=== PATIENT | female | born 1935 | race Caucasian/White ===

== ENCOUNTER 2020-12-20 14:04 | Inpatient (IN) | payer MEDICARE ==
[~2020-12-20 14:04] MED LIST: Iopamidol 370 76% 100 ML VIAL ONE; Iopamidol 370 76% 50 ML VIAL FS ONE
[2020-12-20 14:33] LABS: #Monocytes 1.6 thou/uL (0.11-0.59); #Neutrophils 14.7 thou/uL (1.40-6.50); %Basophils 0.1 % (0.0-1.0); %Eosinophils 0.2 % (0.0-10.0); %Lymphocytes 5.7 % (21.0-51.0); %Monocytes 9.1 % (0.0-10.0); Hemoglobin 15.8 g/dL (12.0-16.0); Mean Corpuscular HGB CONC 32.4 g/dL (32.0-36.0); Mean Corpuscular Hemoglobin 27.8 pg (27.0-31.0); Mean Corpuscular Volume 85.8 fL (78.0-98.0); Mean Platelet Volume 7.8 fL (7.4-10.4); Platelet Count 363 thou/uL (130-400); RBC Distribution Width 13.1 % (11.5-14.5); Red Blood Cell (RBC) Count 5.68 mill/uL (4.20-5.40); White Blood Cell (WBC) Count 17.3 thou/uL (4.8-10.8)
[2020-12-20] MEDS ORDERED: Fentanyl 100 MCG/2 ML VIAL ONE (14:43)
[2020-12-20 14:44] LABS: INR-International Normal Ratio 1.1; Prothrombin Time 13.8 sec (12.0-14.7)
[2020-12-20 14:46] LABS: PTT 92.2 sec (22.9-36.1)
[2020-12-20 14:55] LABS: ALT (SGPT) 37 U/L (8-55); AST (SGOT) 177 U/L (5-34); Albumin 3.3 g/dL (3.4-4.8); Alkaline Phosphatase 118 U/L (40-110); Anion Gap 18 mmol/L (10-20); BUN (Urea Nitrogen) 9 mg/dL (9.8-20.1); Bilirubin, Total 0.4 mg/dL (0.2-1.2); Calc. Creatinine Clearance 0 mL/min (70-130); Calcium 9.1 mg/dL (7.8-10.44); Carbon Dioxide 21 mmol/L (23-31); Chloride 105 mmol/L (98-107); Globulin 2.3 g/dL (2.4-3.5); Glucose 120 mg/dL (83-110); Protein, Total 5.6 g/dL (5.8-8.1); Sodium 140 mmol/L (136-145)
[2020-12-20] MEDS ORDERED: Clopidogrel Bisulfate 300 MG TAB ONE (15:04)
[2020-12-20] MEDS ORDERED: Adenosine 6 MG/2 ML VIAL ONE (15:04)
[2020-12-20] MEDS ORDERED: Heparin 10,000 UNITS/ 10 ML VIAL ONE (15:14)
[2020-12-20] MEDS ORDERED: Mag-Al 1200 mg/1200 mg/30 ML UDCUP PO PRN (15:17)
[2020-12-20] MEDS ORDERED: Ondansetron PF 4 MG/2 ML Vial ONE (15:19)
[2020-12-20] MEDS ORDERED: Sodium Chloride 0.9% 1,000 ML IV SCH (15:30)
[2020-12-20] MEDS ORDERED: Morphine 4 MG/ML VIAL ONE (15:47)
[2020-12-20 16:08] LABS: CKMB 154.9 ng/mL (0-6.6)
[2020-12-20 16:29] LABS: Cardiac Risk 3.7 (Less than 4.5)
[2020-12-20] MEDS ORDERED: Zolpidem Tartrate 5 MG TAB PO PRN (17:40)
[2020-12-20] MEDS ORDERED: Ondansetron PF 4 MG/2 ML Vial IVP PRN (17:40)
[2020-12-20] MEDS ORDERED: Acetaminophen 650 MG Suppository PR PRN (17:40)
[2020-12-20] MEDS ORDERED: Atropine Sulfate 1 mg/10 ml Syringe ONE (20:42)
[2020-12-20] MEDS ORDERED: Famotidine 20 MG TAB PO SCH (21:00)
[2020-12-20] MEDS ORDERED: Atorvastatin Calcium 40 MG TAB PO SCH (21:00)
[2020-12-20] MEDS: Morphine 4 MG/ML VIAL SLOW IVP PRN (21:05)
[2020-12-20] MEDS: Atorvastatin Calcium 40 MG TAB PO SCH (21:06)
[2020-12-20 22:50] LABS: Troponin I 136.357 ng/mL (< 0.028)
[2020-12-21] MEDS ORDERED: DOPamine 400 MG/D5W 250 ML 250 ML IVPB SCH (00:15)
[2020-12-21] MEDS: Ondansetron PF 4 MG/2 ML Vial IVP PRN ×3 (01:35→12:48)
[2020-12-21] MEDS: Morphine 4 MG/ML VIAL SLOW IVP PRN ×3 (01:37→13:40)
[2020-12-21] MEDS ORDERED: Norepinephrine 8 MG/0.9% NS 250 ML ONE (01:59)
[2020-12-21] MEDS: Norepinephrine 8 MG/0.9% NS 250 ML IVPB SCH ×2 (02:20→17:19)
[2020-12-21 02:39] LABS: Hemoglobin A1c 5.5 % (4.0-6.0)
[2020-12-21 02:49] LABS: Band 11 % (5-11); Eosinophils 1 % (0-10); Hemoglobin 13.7 g/dL (12.0-16.0); Lymphocytes 2 % (21-51); MDiff Complete? YES; Mean Corpuscular HGB CONC 33.5 g/dL (32.0-36.0); Mean Corpuscular Hemoglobin 29.4 pg (27.0-31.0); Mean Corpuscular Volume 87.9 fL (78.0-98.0); Mean Platelet Volume 7.9 fL (7.4-10.4); Monocytes 10 % (0-10); Neutrophil 75 % (42-75); Platelet Count 367 thou/uL (130-400); Platelet Morphology Comment Appears Adequate; RBC Distribution Width 13.2 % (11.5-14.5); RBC Morphology Normal; Reactive Lymphocytes 1 % (0-10); Red Blood Cell (RBC) Count 4.67 mill/uL (4.20-5.40)
[2020-12-21 03:07] LABS: Critical Call Chem Troponin I RESULT DECREASING; Troponin I 123.561 ng/mL (< 0.028)
[2020-12-21] MEDS: Sodium Chloride 0.9% 1,000 ML IV SCH ×2 (03:47→17:21)
[2020-12-21 04:33] LABS: ALT (SGPT) 33 U/L (8-55); AST (SGOT) 160 U/L (5-34); Alkaline Phosphatase 104 U/L (40-110); Anion Gap 18 mmol/L (10-20); BUN (Urea Nitrogen) 16 mg/dL (9.8-20.1); Bilirubin, Total 0.5 mg/dL (0.2-1.2); Calc. Creatinine Clearance 37 mL/min (70-130); Calcium 8.8 mg/dL (7.8-10.44); Carbon Dioxide 18 mmol/L (23-31); Cardiac Risk 3.2 (Less than 4.5); Chloride 107 mmol/L (98-107); Cholesterol 138 mg/dl (< 200 Desired); Globulin 2.7 g/dL (2.4-3.5); Glucose 156 mg/dL (83-110); HDL Cholesterol 43 mg/dL (>60 Neg Risk); LDL Cholesterol, Calculated 74 mg/dL; Potassium 5.1 mmol/L (3.5-5.1); Protein, Total 5.7 g/dL (5.8-8.1); Sodium 138 mmol/L (136-145); Triglycerides 105 mg/dL (Less than 150)
[2020-12-21 08:04] LABS: SARS-CoV-2 NAA Rapid Test Not Detected (NotDetected)
[2020-12-21] MEDS: Aspirin Chewable 81 MG TAB PO SCH (08:55)
[2020-12-21] MEDS: Famotidine 20 MG TAB PO SCH (08:55)
[2020-12-21] MEDS: Enoxaparin Sodium 40 MG/0.4 ML SYRINGE SC SCH (08:55)
[2020-12-21] MEDS: Clopidogrel Bisulfate 75 MG TAB PO SCH (08:55)
[2020-12-21] MEDS: HYDROcodone/Acetaminophen 5/325 mg Tablet PO PRN ×2 (09:04→17:10)
[2020-12-21] MEDS: cefTRIAXone\\ROCEPHIN 1 GM in Sodium Chloride 0.9% 100 ML IVPB SCH (10:21)
[2020-12-21 10:57] LABS: Bacteria/HPF None Seen HPF (None Seen); Bilirubin Negative (Negative); Blood, Urine Negative (Negative); Clarity Clear (Clear); Glucose, Urine (Dipstick) Normal (Negative); Ketone, Urine Negative (Negative); Leukocyte Negative Leu/uL (Negative); Nitrite Negative (Negative); Protein, Urine (Dipstick) 30 mg/dL (Neg-Trace); RBC/HPF 0-3 HPF (0-3); Specific Gravity, Urine 1.049 (1.002-1.036); Squamous Epithelial None Seen HPF (0-3); Urobilinogen Normal mg/dL (Less than 2)
[2020-12-21 11:29] LABS: Critical Call Chem Troponin I RESULT DECREASING; Troponin I 70.533 ng/mL (< 0.028)
[2020-12-21] MEDS: Senokot S 8.6-50 MG TAB PO PRN (13:45)
[2020-12-21] MEDS ORDERED: FLU VACC QS2021-22(65YR UP)/PF 240 MCG/0.7 ML SYRINGE IM ONE (17:00)
[2020-12-21] MEDS: Atorvastatin Calcium 40 MG TAB PO SCH (20:00)
[2020-12-22] MEDS ORDERED: Norepinephrine 8 MG in Dextrose 5% in Water 242 ML IVPB PRN (02:00)
[2020-12-22] MEDS: Norepinephrine 8 MG in Dextrose 5% in Water 242 ML IVPB SCH ×2 (03:02→13:16)
[2020-12-22] MEDS: Sodium Chloride 0.9% 1,000 ML IV SCH ×2 (05:21→18:10)
[2020-12-22 08:20] LABS: #Lymphocytes 1.2 thou/uL (1.20-3.40); #Monocytes 1.6 thou/uL (0.11-0.59); #Neutrophils 12.6 thou/uL (1.40-6.50); %Basophils 0.2 % (0.0-1.0); %Eosinophils 0.3 % (0.0-10.0); %Lymphocytes 7.9 % (21.0-51.0); %Monocytes 10.2 % (0.0-10.0); %Neutrophils 81.4 % (42.0-75.0); Hemoglobin 10.8 g/dL (12.0-16.0); Mean Corpuscular HGB CONC 32.2 g/dL (32.0-36.0); Mean Corpuscular Hemoglobin 28.1 pg (27.0-31.0); Mean Corpuscular Volume 87.3 fL (78.0-98.0); Mean Platelet Volume 7.7 fL (7.4-10.4); Platelet Count 345 thou/uL (130-400); RBC Distribution Width 13.4 % (11.5-14.5); Red Blood Cell (RBC) Count 3.84 mill/uL (4.20-5.40); White Blood Cell (WBC) Count 15.4 thou/uL (4.8-10.8)
[2020-12-22 08:41] LABS: Anion Gap 13 mmol/L (10-20); BUN (Urea Nitrogen) 15 mg/dL (9.8-20.1); Calc. Creatinine Clearance 58 mL/min (70-130); Calcium 8.3 mg/dL (7.8-10.44); Carbon Dioxide 21 mmol/L (23-31); Chloride 107 mmol/L (98-107); Glucose 124 mg/dL (83-110); Potassium 4.2 mmol/L (3.5-5.1); Sodium 137 mmol/L (136-145)
[2020-12-22] MEDS: cefTRIAXone\\ROCEPHIN 1 GM in Sodium Chloride 0.9% 100 ML IVPB SCH (09:03)
[2020-12-22] MEDS: ALPRAZolam 0.5 MG TAB PO PRN ×2 (09:04→21:05)
[2020-12-22] MEDS: Enoxaparin Sodium 40 MG/0.4 ML SYRINGE SC SCH (09:04)
[2020-12-22] MEDS: Clopidogrel Bisulfate 75 MG TAB PO SCH (09:04)
[2020-12-22] MEDS: Famotidine 20 MG TAB PO SCH (09:04)
[2020-12-22] MEDS: Aspirin Chewable 81 MG TAB PO SCH (09:04)
[2020-12-22] MEDS: Atorvastatin Calcium 40 MG TAB PO SCH (20:14)
[2020-12-22] MEDS: Morphine 4 MG/ML VIAL SLOW IVP PRN (20:14)
[2020-12-22] MEDS: Ondansetron PF 4 MG/2 ML Vial IVP PRN ×2 (20:16)
[2020-12-23] MEDS: Senokot S 8.6-50 MG TAB PO PRN (04:40)
[2020-12-23] MEDS: ALPRAZolam 0.5 MG TAB PO PRN (04:41)
[2020-12-23 08:30] LABS: Chloride 109 mmol/L (98-107); Potassium 4.1 mmol/L (3.5-5.1); Sodium 139 mmol/L (136-145)
[2020-12-23] MEDS: Enoxaparin Sodium 40 MG/0.4 ML SYRINGE SC SCH (08:30)
[2020-12-23] MEDS: Aspirin Chewable 81 MG TAB PO SCH (08:30)
[2020-12-23 08:31] LABS: Glucose 87 mg/dL (83-110)
[2020-12-23 08:33] LABS: Carbon Dioxide 22 mmol/L (23-31)
[2020-12-23 08:34] LABS: Calc. Creatinine Clearance 63 mL/min (70-130)
[2020-12-23 08:35] LABS: BUN (Urea Nitrogen) 10 mg/dL (9.8-20.1)
[2020-12-23 08:37] LABS: Anion Gap 12 mmol/L (10-20)
[2020-12-23 08:40] LABS: #Eosinphils 0.1 thou/uL (0.0-0.7); #Lymphocytes 0.9 thou/uL (1.20-3.40); #Monocytes 0.8 thou/uL (0.11-0.59); #Neutrophils 4.4 thou/uL (1.40-6.50); %Basophils 0.4 % (0.0-1.0); %Eosinophils 2.1 % (0.0-10.0); %Lymphocytes 14.2 % (21.0-51.0); %Monocytes 12.9 % (0.0-10.0); %Neutrophils 70.4 % (42.0-75.0); Hemoglobin 9.2 g/dL (12.0-16.0); Mean Corpuscular Hemoglobin 28.9 pg (27.0-31.0); Mean Corpuscular Volume 87.7 fL (78.0-98.0); Mean Platelet Volume 7.9 fL (7.4-10.4); Platelet Count 204 thou/uL (130-400); RBC Distribution Width 13.1 % (11.5-14.5); Red Blood Cell (RBC) Count 3.17 mill/uL (4.20-5.40); White Blood Cell (WBC) Count 6.2 thou/uL (4.8-10.8)
[2020-12-23] MEDS: Sodium Chloride 0.9% 1,000 ML IV SCH ×2 (08:52→17:43)
[2020-12-23] MEDS: Ondansetron PF 4 MG/2 ML Vial IVP PRN ×2 (09:35→17:43)
[2020-12-23] MEDS: Clopidogrel Bisulfate 75 MG TAB PO SCH (09:54)
[2020-12-23] MEDS: Famotidine 20 MG TAB PO SCH (09:55)
[2020-12-23] MEDS ORDERED: Guaifenesin DM 100-10/5 ML UDCUP PO PRN (10:14)
[2020-12-23] MEDS ORDERED: Loratadine 10 MG TAB PO PRN (10:15)
[2020-12-23] MEDS ORDERED: Milk Of Magnesia 30 ML UDCUP PO PRN (10:16)
[2020-12-23] MEDS: cefTRIAXone\\ROCEPHIN 1 GM in Sodium Chloride 0.9% 100 ML IVPB SCH (10:51)
[2020-12-23] MEDS: Morphine 4 MG/ML VIAL SLOW IVP PRN ×2 (11:03→20:30)
[2020-12-23] MEDS: Azithromycin 500 MG in Sodium Chloride 0.9% 250 ML 250 ML IVPB SCH (11:56)
[2020-12-23] MEDS: Atorvastatin Calcium 40 MG TAB PO SCH (20:39)
[2020-12-24] MEDS: Morphine 4 MG/ML VIAL SLOW IVP PRN ×4 (00:21→18:22)
[2020-12-24 04:09] LABS: #Eosinphils 0.2 thou/uL (0.0-0.7); #Lymphocytes 0.7 thou/uL (1.20-3.40); #Monocytes 0.6 thou/uL (0.11-0.59); #Neutrophils 3.6 thou/uL (1.40-6.50); %Eosinophils 4.2 % (0.0-10.0); %Lymphocytes 12.9 % (21.0-51.0); %Monocytes 11.1 % (0.0-10.0); %Neutrophils 71.8 % (42.0-75.0); Hemoglobin 8.1 g/dL (12.0-16.0); Mean Corpuscular HGB CONC 33.7 g/dL (32.0-36.0); Mean Corpuscular Hemoglobin 29.8 pg (27.0-31.0); Mean Corpuscular Volume 88.4 fL (78.0-98.0); Mean Platelet Volume 7.9 fL (7.4-10.4); Platelet Count 207 thou/uL (130-400); RBC Distribution Width 13.1 % (11.5-14.5); Red Blood Cell (RBC) Count 2.73 mill/uL (4.20-5.40); White Blood Cell (WBC) Count 5.1 thou/uL (4.8-10.8)
[2020-12-24 04:12] LABS: Anion Gap 9 mmol/L (10-20); BUN (Urea Nitrogen) 9 mg/dL (9.8-20.1); Calc. Creatinine Clearance 69 mL/min (70-130); Calcium 7.7 mg/dL (7.8-10.44); Carbon Dioxide 26 mmol/L (23-31); Chloride 110 mmol/L (98-107); Glucose 72 mg/dL (83-110); Potassium 3.7 mmol/L (3.5-5.1); Sodium 141 mmol/L (136-145)
[2020-12-24] MEDS: Sodium Chloride 0.9% 1,000 ML IV SCH (07:30)
[2020-12-24] MEDS: Clopidogrel Bisulfate 75 MG TAB PO SCH ×2 (08:15→09:47)
[2020-12-24] MEDS: Aspirin Chewable 81 MG TAB PO SCH ×2 (08:15→09:47)
[2020-12-24] MEDS: Polyethylene Glycol 3350 17 GM Packet PO SCH ×3 (08:15→09:47)
[2020-12-24] MEDS: Calcium Carbonate 600 MG + Vit D TAB PO SCH ×3 (08:15→17:16)
[2020-12-24] MEDS: Enoxaparin Sodium 40 MG/0.4 ML SYRINGE SC SCH (09:46)
[2020-12-24] MEDS: cefTRIAXone\\ROCEPHIN 1 GM in Sodium Chloride 0.9% 100 ML IVPB SCH (11:00)
[2020-12-24] MEDS: Azithromycin 500 MG in Sodium Chloride 0.9% 250 ML 250 ML IVPB SCH (12:11)
[2020-12-24] MEDS ORDERED: Amino Acids 4.25 %/Dextrose 5% 2,000 ML IV SCH (12:30)
[2020-12-24] MEDS: Ondansetron PF 4 MG/2 ML Vial IVP PRN (21:08)
[2020-12-24] MEDS: Atorvastatin Calcium 40 MG TAB PO SCH (21:16)
[2020-12-25] MEDS: Morphine 4 MG/ML VIAL SLOW IVP PRN ×4 (00:03→16:58)
[2020-12-25 06:53] LABS: #Eosinphils 0.3 thou/uL (0.0-0.7); #Lymphocytes 0.7 thou/uL (1.20-3.40); #Monocytes 0.8 thou/uL (0.11-0.59); #Neutrophils 5.4 thou/uL (1.40-6.50); %Basophils 0.2 % (0.0-1.0); %Neutrophils 74.8 % (42.0-75.0); Hemoglobin 9.8 g/dL (12.0-16.0); Mean Corpuscular HGB CONC 33.2 g/dL (32.0-36.0); Mean Corpuscular Hemoglobin 29.1 pg (27.0-31.0); Mean Corpuscular Volume 87.5 fL (78.0-98.0); Mean Platelet Volume 7.7 fL (7.4-10.4); Platelet Count 272 thou/uL (130-400); RBC Distribution Width 13.1 % (11.5-14.5); Red Blood Cell (RBC) Count 3.37 mill/uL (4.20-5.40); White Blood Cell (WBC) Count 7.3 thou/uL (4.8-10.8)
[2020-12-25 06:59] LABS: Anion Gap 13 mmol/L (10-20); BUN (Urea Nitrogen) 10 mg/dL (9.8-20.1); Calc. Creatinine Clearance 71 mL/min (70-130); Calcium 8.3 mg/dL (7.8-10.44); Carbon Dioxide 25 mmol/L (23-31); Chloride 104 mmol/L (98-107); Glucose 115 mg/dL (83-110); Potassium 3.6 mmol/L (3.5-5.1); Sodium 138 mmol/L (136-145)
[2020-12-25] MEDS ORDERED: Bisacodyl 5 MG TAB PO PRN (08:01)
[2020-12-25] MEDS ORDERED: Hydrocerin (Eucerin) Cream 120 gm Jar TOP PRN (08:01)
[2020-12-25] MEDS ORDERED: Sodium Chloride 0.65% Nasal 44 ML BOT EA NARE PRN (08:01)
[2020-12-25] MEDS ORDERED: GUAIFENESIN SF SOLN 200 MG/10 ML UDCUP PO PRN (08:01)
[2020-12-25] MEDS ORDERED: Loperamide HCl 2 MG CAP PO PRN (08:01)
[2020-12-25] MEDS ORDERED: Artificial Tear Sol 15 ML BOT EA EYE PRN (08:01)
[2020-12-25] MEDS ORDERED: Cepastat Lozenges 1 LOZ PO PRN (08:01)
[2020-12-25] MEDS ORDERED: hydrALAZINE 20 MG/ML VIAL SLOW IVP PRN (08:01)
[2020-12-25] MEDS ORDERED: Amino Acids 4.25 %/Dextrose 5% 2,000 ML BAG IV SCH (09:00)
[2020-12-25] MEDS: Clopidogrel Bisulfate 75 MG TAB PO SCH (09:58)
[2020-12-25] MEDS: Calcium Carbonate 600 MG + Vit D TAB PO SCH ×2 (09:58→16:58)
[2020-12-25] MEDS: Enoxaparin Sodium 40 MG/0.4 ML SYRINGE SC SCH (09:58)
[2020-12-25] MEDS: Ondansetron PF 4 MG/2 ML Vial IVP PRN ×2 (09:58→16:59)
[2020-12-25] MEDS: Aspirin Chewable 81 MG TAB PO SCH (09:58)
[2020-12-25] MEDS ORDERED: Carvedilol 6.25 MG TAB PO SCH (11:45)
[2020-12-25] MEDS: HYDROcodone/Acetaminophen 5/325 mg Tablet PO PRN ×2 (11:49→20:31)
[2020-12-25] MEDS: Amino Acids 4.25 %/Dextrose 5% 1,000 ML IV SCH (11:52)
[2020-12-25] MEDS: cefTRIAXone\\ROCEPHIN 1 GM in Sodium Chloride 0.9% 100 ML IVPB SCH ×2 (15:09→19:17)
[2020-12-25] MEDS: Azithromycin 500 MG in Sodium Chloride 0.9% 250 ML 250 ML IVPB SCH ×2 (16:15→19:18)
[2020-12-25] MEDS: Carvedilol 6.25 MG TAB PO SCH (16:58)
[2020-12-25] MEDS: Atorvastatin Calcium 40 MG TAB PO SCH (20:31)
[2020-12-26] MEDS: Morphine 4 MG/ML VIAL SLOW IVP PRN ×2 (03:36→20:55)
[2020-12-26] MEDS: Nitroglycerin 0.4 MG TAB (25 Tab Bottle) SL PRN ×2 (04:39→04:46)
[2020-12-26] MEDS: HYDROcodone/Acetaminophen 5/325 mg Tablet PO PRN ×3 (06:01→17:29)
[2020-12-26 06:27] LABS: #Eosinphils 0.3 thou/uL (0.0-0.7); #Lymphocytes 0.5 thou/uL (1.20-3.40); #Monocytes 0.7 thou/uL (0.11-0.59); #Neutrophils 6.5 thou/uL (1.40-6.50); %Basophils 0.5 % (0.0-1.0); %Eosinophils 3.3 % (0.0-10.0); %Lymphocytes 6.6 % (21.0-51.0); %Neutrophils 80.6 % (42.0-75.0); Hemoglobin 9.5 g/dL (12.0-16.0); Mean Corpuscular HGB CONC 33.6 g/dL (32.0-36.0); Mean Corpuscular Hemoglobin 29.3 pg (27.0-31.0); Mean Corpuscular Volume 87.2 fL (78.0-98.0); Mean Platelet Volume 7.9 fL (7.4-10.4); Platelet Count 308 thou/uL (130-400); RBC Distribution Width 13.3 % (11.5-14.5); Red Blood Cell (RBC) Count 3.25 mill/uL (4.20-5.40); White Blood Cell (WBC) Count 8.1 thou/uL (4.8-10.8)
[2020-12-26 06:48] LABS: Anion Gap 10 mmol/L (10-20); BUN (Urea Nitrogen) 14 mg/dL (9.8-20.1); Calc. Creatinine Clearance 809 mL/min (70-130); Calcium 8.7 mg/dL (7.8-10.44); Carbon Dioxide 31 mmol/L (23-31); Chloride 100 mmol/L (98-107); Glucose 135 mg/dL (83-110); Magnesium 1.7 mg/dL (1.6-2.6); Potassium 3.6 mmol/L (3.5-5.1); Sodium 137 mmol/L (136-145)
[2020-12-26 06:58] LABS: Phosphorus 1.5 mg/dL (2.3-4.7)
[2020-12-26] MEDS ORDERED: Potassium Phosphate 15 MMOL in Sodium Chloride 0.9% 250 ML 250 ML IVPB SCH (08:00)
[2020-12-26] MEDS: Amino Acids 4.25 %/Dextrose 5% 1,000 ML IV SCH (08:57)
[2020-12-26] MEDS: Calcium Carbonate 600 MG + Vit D TAB PO SCH ×2 (08:59→17:26)
[2020-12-26] MEDS: Carvedilol 6.25 MG TAB PO SCH ×2 (08:59→17:26)
[2020-12-26] MEDS: Aspirin Chewable 81 MG TAB PO SCH (08:59)
[2020-12-26] MEDS: Enoxaparin Sodium 40 MG/0.4 ML SYRINGE SC SCH (09:00)
[2020-12-26] MEDS: Clopidogrel Bisulfate 75 MG TAB PO SCH (09:00)
[2020-12-26] MEDS ORDERED: Potassium Chloride 10 MEQ TAB PO SCH (09:15)
[2020-12-26] MEDS: Furosemide 20 MG TAB PO SCH (12:25)
[2020-12-26] MEDS: Azithromycin 500 MG in Sodium Chloride 0.9% 250 ML 250 ML IVPB SCH (14:21)
[2020-12-26] MEDS: cefTRIAXone\\ROCEPHIN 1 GM in Sodium Chloride 0.9% 100 ML IVPB SCH (14:21)
[2020-12-26] MEDS: Atorvastatin Calcium 40 MG TAB PO SCH (20:49)
[2020-12-26] MEDS: Calcium Carbonate 500 MG ChewTAB PO PRN (23:00)
[2020-12-26] MEDS: Ondansetron PF 4 MG/2 ML Vial IVP PRN (23:41)
[2020-12-27] MEDS: HYDROcodone/Acetaminophen 5/325 mg Tablet PO PRN ×4 (00:38→23:23)
[2020-12-27] MEDS: Morphine 4 MG/ML VIAL SLOW IVP PRN ×2 (03:48→19:52)
[2020-12-27 04:50] LABS: #Eosinphils 0.3 thou/uL (0.0-0.7); #Lymphocytes 0.7 thou/uL (1.20-3.40); #Monocytes 0.7 thou/uL (0.11-0.59); #Neutrophils 5.4 thou/uL (1.40-6.50); %Basophils 0.6 % (0.0-1.0); %Eosinophils 4.6 % (0.0-10.0); %Lymphocytes 10.2 % (21.0-51.0); %Monocytes 10.3 % (0.0-10.0); %Neutrophils 74.3 % (42.0-75.0); Hemoglobin 9.6 g/dL (12.0-16.0); Mean Corpuscular HGB CONC 32.7 g/dL (32.0-36.0); Mean Corpuscular Hemoglobin 28.7 pg (27.0-31.0); Mean Corpuscular Volume 87.7 fL (78.0-98.0); Mean Platelet Volume 8.3 fL (7.4-10.4); Platelet Count 311 thou/uL (130-400); RBC Distribution Width 13.7 % (11.5-14.5); Red Blood Cell (RBC) Count 3.33 mill/uL (4.20-5.40); White Blood Cell (WBC) Count 7.2 thou/uL (4.8-10.8)
[2020-12-27 05:09] LABS: Anion Gap 11 mmol/L (10-20); BUN (Urea Nitrogen) 11 mg/dL (9.8-20.1); Calc. Creatinine Clearance 753 mL/min (70-130); Calcium 8.7 mg/dL (7.8-10.44); Carbon Dioxide 29 mmol/L (23-31); Chloride 103 mmol/L (98-107); Glucose 120 mg/dL (83-110); Potassium 3.4 mmol/L (3.5-5.1); Sodium 140 mmol/L (136-145)
[2020-12-27] MEDS: ALPRAZolam 0.5 MG TAB PO PRN (05:24)
[2020-12-27] MEDS: Acetaminophen 325 MG TAB PO PRN (05:32)
[2020-12-27] MEDS: Aspirin Chewable 81 MG TAB PO SCH (08:42)
[2020-12-27] MEDS: Potassium Chloride 10 MEQ TAB PO SCH (08:43)
[2020-12-27] MEDS: Clopidogrel Bisulfate 75 MG TAB PO SCH (08:43)
[2020-12-27] MEDS: Carvedilol 6.25 MG TAB PO SCH ×2 (08:43→17:16)
[2020-12-27] MEDS: Calcium Carbonate 600 MG + Vit D TAB PO SCH ×2 (08:43→17:16)
[2020-12-27] MEDS: Furosemide 20 MG TAB PO SCH (08:43)
[2020-12-27] MEDS: Enoxaparin Sodium 40 MG/0.4 ML SYRINGE SC SCH (08:44)
[2020-12-27] MEDS: Atorvastatin Calcium 40 MG TAB PO SCH (19:52)
[2020-12-28] MEDS: Morphine 4 MG/ML VIAL SLOW IVP PRN ×2 (03:30→20:02)
[2020-12-28] MEDS: HYDROcodone/Acetaminophen 5/325 mg Tablet PO PRN ×2 (07:58→14:13)
[2020-12-28] MEDS: Aspirin Chewable 81 MG TAB PO SCH (07:59)
[2020-12-28] MEDS: Carvedilol 6.25 MG TAB PO SCH ×2 (07:59→18:17)
[2020-12-28] MEDS: Clopidogrel Bisulfate 75 MG TAB PO SCH (07:59)
[2020-12-28] MEDS: Calcium Carbonate 600 MG + Vit D TAB PO SCH ×2 (08:00→18:17)
[2020-12-28] MEDS: Potassium Chloride 10 MEQ TAB PO SCH (08:00)
[2020-12-28] MEDS: Furosemide 20 MG TAB PO SCH (08:00)
[2020-12-28] MEDS: Enoxaparin Sodium 40 MG/0.4 ML SYRINGE SC SCH (08:12)
[2020-12-28] MEDS ORDERED: Electrolyte Replacement Protocol 1 EACH FS SCH ×2 (08:30→12:00)
[2020-12-28 10:56] LABS: Magnesium 1.6 mg/dL (1.6-2.6); Phosphorus 2.7 mg/dL (2.3-4.7)
[2020-12-28] MEDS ORDERED: Magnesium Sulfate 4 GM in Sodium Chloride 0.9% 250 ML 250 ML IVPB SCH (12:00)
[2020-12-28] MEDS ORDERED: Potassium Chloride 10 MEQ TAB PO SCH (17:30)
[2020-12-28] MEDS ORDERED: Potassium Chloride 20 MEQ TAB PO SCH (19:45)
[2020-12-28] MEDS: Atorvastatin Calcium 40 MG TAB PO SCH (20:02)
[2020-12-28] MEDS: Senokot S 8.6-50 MG TAB PO SCH (20:02)
[2020-12-28] MEDS: Multivit, Therapeutic 1 TAB PO SCH (20:02)
[2020-12-28] MEDS: Ondansetron PF 4 MG/2 ML Vial IVP PRN (21:54)
[2020-12-28] MEDS: Bisacodyl 10 MG SUPP PR SCH (23:10)
[2020-12-29] MEDS: Morphine 4 MG/ML VIAL SLOW IVP PRN ×2 (00:55→05:21)
[2020-12-29] MEDS: Ondansetron PF 4 MG/2 ML Vial IVP PRN ×3 (00:56→21:50)
[2020-12-29] MEDS ORDERED: Mineral Oil ENEMA PR SCH (03:00)
[2020-12-29 04:49] LABS: #Eosinphils 0.3 thou/uL (0.0-0.7); #Lymphocytes 0.7 thou/uL (1.20-3.40); #Monocytes 0.8 thou/uL (0.11-0.59); #Neutrophils 4.6 thou/uL (1.40-6.50); %Basophils 0.3 % (0.0-1.0); %Eosinophils 4.2 % (0.0-10.0); %Lymphocytes 10.9 % (21.0-51.0); %Neutrophils 72.6 % (42.0-75.0); Hemoglobin 10.5 g/dL (12.0-16.0); Mean Corpuscular HGB CONC 32.6 g/dL (32.0-36.0); Mean Corpuscular Hemoglobin 29.3 pg (27.0-31.0); Mean Corpuscular Volume 89.7 fL (78.0-98.0); Mean Platelet Volume 7.9 fL (7.4-10.4); Platelet Count 341 thou/uL (130-400); RBC Distribution Width 14.3 % (11.5-14.5); White Blood Cell (WBC) Count 6.3 thou/uL (4.8-10.8)
[2020-12-29] MEDS: ALPRAZolam 0.5 MG TAB PO PRN ×2 (04:53→23:46)
[2020-12-29 04:59] LABS: Phosphorus 2.9 mg/dL (2.3-4.7)
[2020-12-29 05:01] LABS: Anion Gap 11 mmol/L (10-20); BUN (Urea Nitrogen) 9 mg/dL (9.8-20.1); Calc. Creatinine Clearance 72 mL/min (70-130); Calcium 8.7 mg/dL (7.8-10.44); Carbon Dioxide 36 mmol/L (23-31); Chloride 99 mmol/L (98-107); Glucose 121 mg/dL (83-110); Magnesium 2.3 mg/dL (1.6-2.6); Potassium 3.4 mmol/L (3.5-5.1); Sodium 143 mmol/L (136-145)
[2020-12-29] MEDS ORDERED: Potassium Chloride 20 MEQ TAB PO SCH (07:00)
[2020-12-29] MEDS: Acetaminophen 325 MG TAB PO PRN (08:39)
[2020-12-29] MEDS: Calcium Carbonate 600 MG + Vit D TAB PO SCH ×2 (09:55→17:58)
[2020-12-29] MEDS: Aspirin Chewable 81 MG TAB PO SCH (09:55)
[2020-12-29] MEDS: HYDROcodone/Acetaminophen 5/325 mg Tablet PO PRN ×3 (09:56→21:35)
[2020-12-29] MEDS: Polyethylene Glycol 3350 17 GM Packet PO SCH (09:56)
[2020-12-29] MEDS: Furosemide 20 MG TAB PO SCH (09:56)
[2020-12-29] MEDS: Senokot S 8.6-50 MG TAB PO SCH ×2 (09:56→20:25)
[2020-12-29] MEDS: Clopidogrel Bisulfate 75 MG TAB PO SCH (09:57)
[2020-12-29] MEDS: Carvedilol 6.25 MG TAB PO SCH ×2 (09:57→17:58)
[2020-12-29] MEDS: Potassium Chloride 20 MEQ TAB PO SCH (09:59)
[2020-12-29] MEDS: Enoxaparin Sodium 40 MG/0.4 ML SYRINGE SC SCH (10:00)
[2020-12-29 14:42] LABS: SARS-CoV-2 PCR by NAA Not Detected (NotDetected)
[2020-12-29] MEDS ORDERED: Bisacodyl 10 MG SUPP PR SCH (16:00)
[2020-12-29] MEDS: Atorvastatin Calcium 40 MG TAB PO SCH (20:24)
[2020-12-29] MEDS: Multivit, Therapeutic 1 TAB PO SCH (20:24)
[2020-12-29] MEDS: Bisacodyl 10 MG SUPP PR SCH (20:25)
[2020-12-30] MEDS: Morphine 4 MG/ML VIAL SLOW IVP PRN (02:49)
[2020-12-30] MEDS: HYDROcodone/Acetaminophen 5/325 mg Tablet PO PRN (04:33)
[2020-12-30 05:33] LABS: Anion Gap 11 mmol/L (10-20); BUN (Urea Nitrogen) 10 mg/dL (9.8-20.1); Calc. Creatinine Clearance 69 mL/min (70-130); Calcium 8.8 mg/dL (7.8-10.44); Carbon Dioxide 37 mmol/L (23-31); Chloride 98 mmol/L (98-107); Glucose 106 mg/dL (83-110); Potassium 3.7 mmol/L (3.5-5.1); Sodium 142 mmol/L (136-145)
[2020-12-30 08:15] VITALS: BMI 25.2
[2020-12-30] MEDS: Acetaminophen 325 MG TAB PO PRN (09:12)
[2020-12-30] MEDS: Polyethylene Glycol 3350 17 GM Packet PO SCH (09:12)
[2020-12-30] MEDS: Senokot S 8.6-50 MG TAB PO SCH ×2 (09:12→22:47)
[2020-12-30] MEDS: Carvedilol 6.25 MG TAB PO SCH ×2 (09:12→17:52)
[2020-12-30] MEDS: Furosemide 20 MG TAB PO SCH (09:12)
[2020-12-30] MEDS: Clopidogrel Bisulfate 75 MG TAB PO SCH (09:13)
[2020-12-30] MEDS: Enoxaparin Sodium 40 MG/0.4 ML SYRINGE SC SCH (09:13)
[2020-12-30] MEDS: Aspirin Chewable 81 MG TAB PO SCH (09:13)
[2020-12-30] MEDS: Calcium Carbonate 600 MG + Vit D TAB PO SCH ×2 (09:13→17:52)
[2020-12-30] MEDS: Potassium Chloride 20 MEQ TAB PO SCH (09:16)
[2020-12-30] MEDS ORDERED: Acetaminophen 325 MG TAB PO SCH (10:30)
[2020-12-30] MEDS: traMADol HCl 50 MG TAB PO PRN ×2 (11:39→17:51)
[2020-12-30] MEDS: ALPRAZolam 0.5 MG TAB PO PRN (15:25)
[2020-12-30] MEDS: Acetaminophen 325 MG TAB PO SCH ×2 (15:25→22:47)
[2020-12-30] MEDS: Bisacodyl 10 MG SUPP PR SCH (22:46)
[2020-12-30] MEDS: Atorvastatin Calcium 40 MG TAB PO SCH (22:47)
[2020-12-30] MEDS: Multivit, Therapeutic 1 TAB PO SCH (22:47)
[2020-12-31] MEDS: ALPRAZolam 0.5 MG TAB PO PRN ×2 (02:18→21:10)
[2020-12-31] MEDS: traMADol HCl 50 MG TAB PO PRN ×3 (04:54→18:30)
[2020-12-31 05:35] LABS: Anion Gap 13 mmol/L (10-20); BUN (Urea Nitrogen) 12 mg/dL (9.8-20.1); Calc. Creatinine Clearance 71 mL/min (70-130); Calcium 8.9 mg/dL (7.8-10.44); Carbon Dioxide 34 mmol/L (23-31); Chloride 98 mmol/L (98-107); Glucose 105 mg/dL (83-110); Sodium 140 mmol/L (136-145)
[2020-12-31] MEDS: Acetaminophen 325 MG TAB PO PRN (06:21)
[2020-12-31] MEDS: Furosemide 20 MG TAB PO SCH (09:01)
[2020-12-31] MEDS: Polyethylene Glycol 3350 17 GM Packet PO SCH (09:01)
[2020-12-31] MEDS: Heparin 5,000 UNITS/ML VIAL SC SCH ×2 (09:01→21:11)
[2020-12-31] MEDS: Aspirin Chewable 81 MG TAB PO SCH (09:01)
[2020-12-31] MEDS: Calcium Carbonate 600 MG + Vit D TAB PO SCH ×2 (09:01→15:57)
[2020-12-31] MEDS: Senokot S 8.6-50 MG TAB PO SCH ×2 (09:01→21:12)
[2020-12-31] MEDS: Carvedilol 6.25 MG TAB PO SCH ×2 (09:02→15:57)
[2020-12-31] MEDS: Potassium Chloride 20 MEQ TAB PO SCH (09:02)
[2020-12-31] MEDS: Clopidogrel Bisulfate 75 MG TAB PO SCH (09:02)
[2020-12-31] MEDS: Acetaminophen 325 MG TAB PO SCH ×3 (09:05→21:11)
[2020-12-31] MEDS: Calcium Carbonate 500 MG ChewTAB PO PRN (18:31)
[2020-12-31] MEDS: Atorvastatin Calcium 40 MG TAB PO SCH (21:10)
[2020-12-31] MEDS: Multivit, Therapeutic 1 TAB PO SCH (21:11)
[2020-12-31] MEDS: Bisacodyl 10 MG SUPP PR SCH (21:11)
[2021-01-01] MEDS: Acetaminophen 325 MG TAB PO PRN (00:36)
[2021-01-01] MEDS: traMADol HCl 50 MG TAB PO PRN ×2 (03:26→11:27)
[2021-01-01] MEDS: Ondansetron PF 4 MG/2 ML Vial IVP PRN ×2 (04:13→19:41)
[2021-01-01] MEDS: ALPRAZolam 0.5 MG TAB PO PRN ×2 (06:12→15:26)
[2021-01-01] MEDS: Aspirin Chewable 81 MG TAB PO SCH (08:14)
[2021-01-01] MEDS: Senokot S 8.6-50 MG TAB PO SCH ×2 (08:14→20:51)
[2021-01-01] MEDS: Furosemide 20 MG TAB PO SCH (08:14)
[2021-01-01] MEDS: Heparin 5,000 UNITS/ML VIAL SC SCH ×2 (08:14→20:52)
[2021-01-01] MEDS: Polyethylene Glycol 3350 17 GM Packet PO SCH (08:15)
[2021-01-01] MEDS: Carvedilol 6.25 MG TAB PO SCH ×2 (08:15→16:14)
[2021-01-01] MEDS: Clopidogrel Bisulfate 75 MG TAB PO SCH (08:15)
[2021-01-01] MEDS: Calcium Carbonate 600 MG + Vit D TAB PO SCH ×2 (08:15→16:14)
[2021-01-01] MEDS: Acetaminophen 325 MG TAB PO SCH ×3 (08:23→20:51)
[2021-01-01] MEDS: Potassium Chloride 20 MEQ TAB PO SCH (10:49)
[2021-01-01] MEDS: Bisacodyl 10 MG SUPP PR SCH (20:51)
[2021-01-01] MEDS: Multivit, Therapeutic 1 TAB PO SCH (20:51)
[2021-01-01] MEDS: Atorvastatin Calcium 40 MG TAB PO SCH (20:51)
[2021-01-01] MEDS: Calcium Carbonate 500 MG ChewTAB PO PRN (21:32)
[2021-01-02] MEDS: traMADol HCl 50 MG TAB PO PRN ×3 (00:15→23:14)
[2021-01-02] MEDS: Ondansetron PF 4 MG/2 ML Vial IVP PRN (00:16)
[2021-01-02] MEDS: ALPRAZolam 0.5 MG TAB PO PRN ×2 (02:45→14:38)
[2021-01-02] MEDS: Polyethylene Glycol 3350 17 GM Packet PO SCH (07:57)
[2021-01-02] MEDS: Carvedilol 6.25 MG TAB PO SCH ×2 (07:57→17:24)
[2021-01-02] MEDS: Aspirin Chewable 81 MG TAB PO SCH (07:57)
[2021-01-02] MEDS: Heparin 5,000 UNITS/ML VIAL SC SCH ×2 (07:57→20:58)
[2021-01-02] MEDS: Senokot S 8.6-50 MG TAB PO SCH ×2 (07:57→21:19)
[2021-01-02] MEDS: Furosemide 20 MG TAB PO SCH (07:59)
[2021-01-02] MEDS: Acetaminophen 325 MG TAB PO SCH ×3 (07:59→21:03)
[2021-01-02] MEDS: Calcium Carbonate 600 MG + Vit D TAB PO SCH ×2 (08:00→17:24)
[2021-01-02] MEDS: Clopidogrel Bisulfate 75 MG TAB PO SCH (08:00)
[2021-01-02] MEDS: Potassium Chloride 20 MEQ TAB PO SCH (08:55)
[2021-01-02] MEDS: Multivit, Therapeutic 1 TAB PO SCH (21:03)
[2021-01-02] MEDS: Atorvastatin Calcium 40 MG TAB PO SCH (21:03)
[2021-01-02] MEDS: Bisacodyl 10 MG SUPP PR SCH (21:19)
[2021-01-03] MEDS: ALPRAZolam 0.5 MG TAB PO PRN ×2 (03:01→15:28)
[2021-01-03] MEDS: traMADol HCl 50 MG TAB PO PRN (07:38)
[2021-01-03] MEDS ORDERED: Potassium Chloride 10 MEQ TAB PO SCH (08:00)
[2021-01-03] MEDS: Heparin 5,000 UNITS/ML VIAL SC SCH (09:19)
[2021-01-03] MEDS: Calcium Carbonate 600 MG + Vit D TAB PO SCH ×2 (09:19→15:28)
[2021-01-03] MEDS: Polyethylene Glycol 3350 17 GM Packet PO SCH (09:19)
[2021-01-03] MEDS: Senokot S 8.6-50 MG TAB PO SCH (09:19)
[2021-01-03] MEDS: Aspirin Chewable 81 MG TAB PO SCH (09:19)
[2021-01-03] MEDS: Clopidogrel Bisulfate 75 MG TAB PO SCH (09:19)
[2021-01-03] MEDS: Carvedilol 6.25 MG TAB PO SCH ×2 (09:20→15:28)
[2021-01-03] MEDS: Acetaminophen 325 MG TAB PO SCH ×2 (09:20→15:27)
[2021-01-03] MEDS: Furosemide 20 MG TAB PO SCH (09:23)
[2021-01-03] MEDS: Ondansetron PF 4 MG/2 ML Vial IVP PRN (14:23)
[2021-01-03 18:01] VITALS: BP 115/56; TEMP 97.9
== END 2021-01-03 19:06 | DRG 246 ==
LOC: ERS 14:04 → CCU 14:14 → ERHOLD 18:38 → CCU 18:39 → IMCU/EMU 12-23 15:27 → 2NO 12-24 17:02
PROVIDERS: ADMIT Internal Medicine Cardiovascular Disease; ATTEND Internal Medicine
PROC: 027034Z Dilation of Coronary Artery, One Artery with Drug-eluting Intraluminal Device, Percutaneous Approach (ICD-10-PCS; principal; 2020-12-20)
PROC: 4A023N7 Measurement of Cardiac Sampling and Pressure, Left Heart, Percutaneous Approach (ICD-10-PCS; 2020-12-20)
PROC: B2151ZZ Fluoroscopy of Left Heart using Low Osmolar Contrast (ICD-10-PCS; 2020-12-20)
PROC: B2111ZZ Fluoroscopy of Multiple Coronary Arteries using Low Osmolar Contrast (ICD-10-PCS; 2020-12-20)
PROC: 3E033XZ Introduction of Vasopressor into Peripheral Vein, Percutaneous Approach (ICD-10-PCS; 2020-12-21)
DX: I21.09 ST elevation (STEMI) myocardial infarction involving other coronary artery of anterior wall (principal); R57.0 Cardiogenic shock; J98.11 Atelectasis; J90 Pleural effusion, not elsewhere classified; Z20.822 Contact with and (suspected) exposure to COVID-19; K21.9 Gastro-esophageal reflux disease without esophagitis; E78.5 Hyperlipidemia, unspecified; I10 Essential (primary) hypertension; E78.00 Pure hypercholesterolemia, unspecified; F32.A Depression, unspecified; I35.0 Nonrheumatic aortic (valve) stenosis; D72.829 Elevated white blood cell count, unspecified; I25.10 Atherosclerotic heart disease of native coronary artery without angina pectoris; F41.9 Anxiety disorder, unspecified; G89.29 Other chronic pain; M54.9 Dorsalgia, unspecified; K59.00 Constipation, unspecified; E83.42 Hypomagnesemia; E87.6 Hypokalemia; R13.12 Dysphagia, oropharyngeal phase; Z90.49 Acquired absence of other specified parts of digestive tract; Z90.710 Acquired absence of both cervix and uterus; Z90.09 Acquired absence of other part of head and neck; Z98.890 Other specified postprocedural states; Z87.19 Personal history of other diseases of the digestive system; I95.9 Hypotension, unspecified; Z87.891 Personal history of nicotine dependence
CPT/HCPCS: 36415; 36416; 71045; 71250; 74018; 74230; 80048; 80053; 80061; 81001; 82553; 83036; 83605; 83735; 83880; 84100; 84145; 84484; 85025; 85347; 85610; 85730; 92928; 93005; 93010; 93306; 93458; 93798; C9600; J0153; J0456; J0696; J1265; J1644; J1650; J2270; J2405; J3010; J3475; J3490; J7050; J7070; Q9967; U0002; U0003; U0005

== ENCOUNTER 2023-02-23 10:27 | Emergency (ER) | payer OTHER ==
[2023-02-23] MEDS ORDERED: Morphine 4 MG/ML VIAL ONE (10:50)
[2023-02-23] MEDS ORDERED: Ondansetron PF 4 MG/2 ML Vial ONE (10:51)
[2023-02-23 11:01] LABS: #Monocytes 0.3 thou/uL (0.11-0.59); #Neutrophils 7.2 thou/uL (1.40-6.50); %Basophils 0.4 % (0.0-1.0); %Eosinophils 0.5 % (0.0-10.0); %Lymphocytes 7.9 % (21.0-51.0); %Monocytes 4.1 % (0.0-10.0); %Neutrophils 86.7 % (42.0-75.0); Hematocrit 44.7 % (36.0-47.0); Hemoglobin 14.2 g/dL (12.0-16.0); Mean Corpuscular HGB CONC 31.8 g/dL (32.0-36.0); Mean Corpuscular Hemoglobin 29.7 pg (27.0-31.0); Mean Corpuscular Volume 93.5 fl (78.0-98.0); Mean Platelet Volume 9.9 fL (7.4-10.4); Platelet Count 242 10x3/uL (130-400); RBC Distribution Width 14.3 % (11.5-14.5); Red Blood Cell (RBC) Count 4.78 mill/uL (4.20-5.40); White Blood Cell (WBC) Count 8.3 10x3/uL (4.8-10.8)
[2023-02-23 11:29] LABS: ALT (SGPT) 19 U/L (8-55); AST (SGOT) 37 U/L (5-34); Albumin 3.6 g/dL (3.4-4.8); Alkaline Phosphatase 87 U/L (40-110); Anion Gap 19 mmol/L (10-20); BUN (Urea Nitrogen) 24 mg/dL (9.8-20.1); Bilirubin, Total 0.2 mg/dL (0.2-1.2); CK (CPK) 405 U/L (29-168); Calc. Creatinine Clearance 0 mL/min (70-130); Calcium 8.8 mg/dL (7.8-10.44); Carbon Dioxide 19 mmol/L (23-31); Chloride 105 mmol/L (98-107); Estimated GFR 45; Globulin 2.8 g/dL (2.4-3.5); Glucose 145 mg/dL (83-110); Lipase 25 U/L (8-78); Potassium 3.5 mmol/L (3.5-5.1); Protein, Total 6.4 g/dL (5.8-8.1); Sodium 139 mmol/L (136-145)
[2023-02-23] MEDS ORDERED: Ondansetron ODT 8 MG TAB ONE (12:38)
== END 2023-02-23 13:30 | disposition home or self-care (01) ==
LOC: ERS 10:27
DX: M54.9 Dorsalgia, unspecified (principal); F41.0 Panic disorder [episodic paroxysmal anxiety]
CPT/HCPCS: 36415; 74176; 80053; 82550; 83690; 84484; 85025; 93005; 96374; 96375; J2270; J2405; Q0162

== ENCOUNTER 2023-02-26 21:44 | Inpatient (IN) | payer OTHER ==
[2023-02-26] MEDS ORDERED: Ondansetron PF 4 MG/2 ML Vial ONE (22:41)
[2023-02-26] MEDS ORDERED: Metoprolol Tartrate 5 MG (5 mL) VIAL ONE (22:42)
[2023-02-26] MEDS ORDERED: Acetaminophen 650 MG Suppository PR PRN (23:22)
[2023-02-26] MEDS ORDERED: Ondansetron ODT 4 MG TAB PO PRN (23:22)
[2023-02-26] MEDS ORDERED: Ondansetron PF 4 MG/2 ML Vial IVP PRN (23:22)
[2023-02-26] MEDS ORDERED: Pantoprazole 80 MG, Admixture Fee 1 EACH in Sodium Chloride 0.9% 100 ML IVPB SCH (23:30)
[2023-02-27] MEDS ORDERED: Ondansetron PF 4 MG/2 ML Vial ONE ×2 (00:34→06:08)
[2023-02-27] MEDS ORDERED: Morphine 4 MG/ML VIAL ONE (01:13)
[2023-02-27] MEDS: Morphine 2 MG/ML VIAL SLOW IVP PRN ×2 (01:23→06:12)
[2023-02-27 05:01] LABS: #Monocytes 0.8 thou/uL (0.11-0.59); #Neutrophils 8.5 thou/uL (1.40-6.50); %Basophils 0.3 % (0.0-1.0); %Eosinophils 0.3 % (0.0-10.0); %Lymphocytes 8.3 % (21.0-51.0); %Monocytes 7.4 % (0.0-10.0); %Neutrophils 83.4 % (42.0-75.0); Hematocrit 38.4 % (36.0-47.0); Hemoglobin 12.2 g/dL (12.0-16.0); Mean Corpuscular HGB CONC 31.8 g/dL (32.0-36.0); Mean Corpuscular Volume 94.6 fl (78.0-98.0); Mean Platelet Volume 10.2 fL (7.4-10.4); Platelet Count 294 10x3/uL (130-400); RBC Distribution Width 14.9 % (11.5-14.5); Red Blood Cell (RBC) Count 4.06 mill/uL (4.20-5.40); White Blood Cell (WBC) Count 10.2 10x3/uL (4.8-10.8)
[2023-02-27 05:27] LABS: Anion Gap 12 mmol/L (10-20); BUN (Urea Nitrogen) 22 mg/dL (9.8-20.1); Calc. Creatinine Clearance 0 mL/min (70-130); Calcium 8.1 mg/dL (7.8-10.44); Carbon Dioxide 27 mmol/L (23-31); Chloride 106 mmol/L (98-107); Estimated GFR 71; Glucose 89 mg/dL (83-110); Potassium 4.8 mmol/L (3.5-5.1); Sodium 140 mmol/L (136-145)
[2023-02-27] MEDS ORDERED: Morphine 2 MG/ML VIAL ONE (06:10)
[2023-02-27 06:18] LABS: Magnesium 2.2 mg/dL (1.6-2.6)
[2023-02-27] MEDS ORDERED: Metoprolol Tartrate 25 MG TAB ONE (08:23)
[2023-02-27] MEDS: Metoprolol Tartrate 25 MG TAB PO SCH ×2 (10:08→21:30)
[2023-02-27] MEDS: Sodium Chloride 0.9% 1,000 ML IV SCH ×2 (10:08→21:30)
[2023-02-27] MEDS ORDERED: GoLYTELY 4,000 ml Bottle PO SCH (18:50)
[2023-02-27] MEDS: Pantoprazole 40 MG VIAL IVP SCH (21:30)
[2023-02-27 21:39] VITALS: BMI 25.6
[2023-02-28 05:06] LABS: #Eosinphils 0.3 thou/uL (0.0-0.7); #Monocytes 0.6 thou/uL (0.11-0.59); %Basophils 0.6 % (0.0-1.0); %Eosinophils 3.9 % (0.0-10.0); %Lymphocytes 13.9 % (21.0-51.0); %Monocytes 9.1 % (0.0-10.0); %Neutrophils 71.9 % (42.0-75.0); Hematocrit 37.3 % (36.0-47.0); Hemoglobin 11.9 g/dL (12.0-16.0); Mean Corpuscular HGB CONC 31.9 g/dL (32.0-36.0); Mean Corpuscular Hemoglobin 30.5 pg (27.0-31.0); Mean Corpuscular Volume 95.6 fl (78.0-98.0); Mean Platelet Volume 10.4 fL (7.4-10.4); Platelet Count 281 10x3/uL (130-400); RBC Distribution Width 15.7 % (11.5-14.5); White Blood Cell (WBC) Count 6.9 10x3/uL (4.8-10.8)
[2023-02-28 05:31] LABS: Anion Gap 12 mmol/L (10-20); BUN (Urea Nitrogen) 18 mg/dL (9.8-20.1); Calc. Creatinine Clearance 50 mL/min (70-130); Calcium 8.3 mg/dL (7.8-10.44); Carbon Dioxide 23 mmol/L (23-31); Chloride 108 mmol/L (98-107); Cholesterol 163 mg/dl (< 200 Desired); Estimated GFR 71; Glucose 103 mg/dL (83-110); HDL Cholesterol 41 mg/dL (>60 Neg Risk); LDL Cholesterol, Calculated 92 mg/dL; Potassium 3.7 mmol/L (3.5-5.1); Sodium 139 mmol/L (136-145); Triglycerides 152 mg/dL (Less than 150)
[2023-02-28] MEDS: Acetaminophen 325 MG TAB PO PRN (08:31)
[2023-02-28] MEDS: Metoprolol Tartrate 25 MG TAB PO SCH ×2 (08:32→20:54)
[2023-02-28] MEDS: Pantoprazole 40 MG VIAL IVP SCH ×2 (08:32→20:54)
[2023-02-28] MEDS: Sodium Chloride 0.9% 1,000 ML IV SCH ×2 (08:32→20:54)
[2023-03-01] MEDS: Acetaminophen 325 MG TAB PO PRN ×2 (05:11→20:04)
[2023-03-01 05:17] LABS: #Eosinphils 0.2 thou/uL (0.0-0.7); #Monocytes 0.5 thou/uL (0.11-0.59); #Neutrophils 4.4 thou/uL (1.40-6.50); %Basophils 0.3 % (0.0-1.0); %Eosinophils 3.2 % (0.0-10.0); %Lymphocytes 16.4 % (21.0-51.0); %Monocytes 8.7 % (0.0-10.0); %Neutrophils 70.9 % (42.0-75.0); Hematocrit 38.2 % (36.0-47.0); Mean Corpuscular HGB CONC 31.4 g/dL (32.0-36.0); Mean Corpuscular Hemoglobin 29.8 pg (27.0-31.0); Mean Corpuscular Volume 94.8 fl (78.0-98.0); Mean Platelet Volume 10.5 fL (7.4-10.4); Platelet Count 295 10x3/uL (130-400); RBC Distribution Width 15.6 % (11.5-14.5); Red Blood Cell (RBC) Count 4.03 mill/uL (4.20-5.40); White Blood Cell (WBC) Count 6.2 10x3/uL (4.8-10.8)
[2023-03-01 05:41] LABS: Anion Gap 11 mmol/L (10-20); BUN (Urea Nitrogen) 12 mg/dL (9.8-20.1); Calc. Creatinine Clearance 68 mL/min (70-130); Calcium 7.8 mg/dL (7.8-10.44); Carbon Dioxide 23 mmol/L (23-31); Chloride 112 mmol/L (98-107); Estimated GFR 85; Glucose 102 mg/dL (83-110); Potassium 3.6 mmol/L (3.5-5.1); Sodium 142 mmol/L (136-145)
[2023-03-01] MEDS: Metoprolol Tartrate 25 MG TAB PO SCH ×2 (08:35→20:04)
[2023-03-01] MEDS: Pantoprazole 40 MG VIAL IVP SCH ×2 (08:35→20:04)
[2023-03-01] MEDS ORDERED: Spironolactone 25 MG TAB PO SCH (08:45)
[2023-03-01] MEDS: Atorvastatin Calcium 40 MG TAB PO SCH (20:04)
[2023-03-01] MEDS: Simethicone Chewable 80 MG TAB PO PRN (22:42)
[2023-03-02] MEDS: Acetaminophen 325 MG TAB PO PRN ×3 (04:26→21:28)
[2023-03-02 04:36] LABS: #Eosinphils 0.1 thou/uL (0.0-0.7); #Monocytes 0.6 thou/uL (0.11-0.59); #Neutrophils 6.7 thou/uL (1.40-6.50); %Basophils 0.4 % (0.0-1.0); %Eosinophils 1.7 % (0.0-10.0); %Lymphocytes 10.2 % (21.0-51.0); Hematocrit 41.1 % (36.0-47.0); Hemoglobin 13.2 g/dL (12.0-16.0); Mean Corpuscular HGB CONC 32.1 g/dL (32.0-36.0); Mean Corpuscular Hemoglobin 30.5 pg (27.0-31.0); Mean Corpuscular Volume 94.9 fl (78.0-98.0); Mean Platelet Volume 10.2 fL (7.4-10.4); Platelet Count 309 10x3/uL (130-400); RBC Distribution Width 15.7 % (11.5-14.5); Red Blood Cell (RBC) Count 4.33 mill/uL (4.20-5.40); White Blood Cell (WBC) Count 8.4 10x3/uL (4.8-10.8)
[2023-03-02 05:02] LABS: Anion Gap 11 mmol/L (10-20); BUN (Urea Nitrogen) 7 mg/dL (9.8-20.1); Calc. Creatinine Clearance 64 mL/min (70-130); Calcium 8.3 mg/dL (7.8-10.44); Carbon Dioxide 27 mmol/L (23-31); Chloride 106 mmol/L (98-107); Estimated GFR 84; Glucose 123 mg/dL (83-110); Potassium 3.1 mmol/L (3.5-5.1); Sodium 141 mmol/L (136-145)
[2023-03-02] MEDS ORDERED: Lorazepam 2 MG/ML VIAL SLOW IVP PRN (05:26)
[2023-03-02] MEDS ORDERED: Potassium Chloride 20 MEQ TAB PO SCH (09:00)
[2023-03-02] MEDS: Pantoprazole 40 MG VIAL IVP SCH ×2 (09:54→21:29)
[2023-03-02] MEDS: Aspirin 81 mg Enteric Coated Tablet PO SCH (09:54)
[2023-03-02] MEDS: Spironolactone 25 MG TAB PO SCH (09:54)
[2023-03-02] MEDS: Metoprolol Tartrate 25 MG TAB PO SCH ×2 (09:54→21:29)
[2023-03-02] MEDS: Atorvastatin Calcium 40 MG TAB PO SCH (21:29)
[2023-03-02] MEDS: Simethicone Chewable 80 MG TAB PO PRN (21:29)
[2023-03-03] MEDS ORDERED: Lorazepam 2 MG/ML VIAL SLOW IVP SCH (03:30)
[2023-03-03 04:37] LABS: #Eosinphils 0.3 thou/uL (0.0-0.7); #Monocytes 0.7 thou/uL (0.11-0.59); #Neutrophils 2.7 thou/uL (1.40-6.50); %Basophils 0.4 % (0.0-1.0); %Eosinophils 6.1 % (0.0-10.0); %Lymphocytes 18.8 % (21.0-51.0); %Monocytes 14.7 % (0.0-10.0); %Neutrophils 59.1 % (42.0-75.0); Hematocrit 37.3 % (36.0-47.0); Mean Corpuscular HGB CONC 32.2 g/dL (32.0-36.0); Mean Corpuscular Hemoglobin 30.1 pg (27.0-31.0); Mean Corpuscular Volume 93.5 fl (78.0-98.0); Mean Platelet Volume 10.3 fL (7.4-10.4); Platelet Count 272 10x3/uL (130-400); RBC Distribution Width 15.6 % (11.5-14.5); Red Blood Cell (RBC) Count 3.99 mill/uL (4.20-5.40); White Blood Cell (WBC) Count 4.6 10x3/uL (4.8-10.8)
[2023-03-03 04:57] LABS: Anion Gap 12 mmol/L (10-20); BUN (Urea Nitrogen) 5 mg/dL (9.8-20.1); Calc. Creatinine Clearance 70 mL/min (70-130); Calcium 8.1 mg/dL (7.8-10.44); Carbon Dioxide 23 mmol/L (23-31); Chloride 110 mmol/L (98-107); Estimated GFR 86; Glucose 107 mg/dL (83-110); Potassium 3.1 mmol/L (3.5-5.1); Sodium 142 mmol/L (136-145)
[2023-03-03] MEDS ORDERED: Potassium Chloride 20 MEQ TAB PO SCH ×2 (08:00→13:00)
[2023-03-03] MEDS: Spironolactone 25 MG TAB PO SCH (09:51)
[2023-03-03] MEDS: Metoprolol Tartrate 25 MG TAB PO SCH (09:51)
[2023-03-03] MEDS: Aspirin 81 mg Enteric Coated Tablet PO SCH (09:51)
[2023-03-03] MEDS: Pantoprazole 40 MG VIAL IVP SCH (09:51)
[2023-03-03] MEDS: Acetaminophen 325 MG TAB PO PRN (10:12)
[2023-03-03 12:27] VITALS: BP 137/65; TEMP 97.1
== END 2023-03-03 16:50 | disposition home or self-care (01) | DRG 308 ==
LOC: ERS 21:44 → ERHOLD 23:24 → 2NO 02-27 18:29
PROVIDERS: ADMIT Student in an Organized Health Care Education/Training Program; ATTEND Internal Medicine
DX: I48.0 Paroxysmal atrial fibrillation (principal); K20.91 Esophagitis, unspecified with bleeding; I50.32 Chronic diastolic (congestive) heart failure; K86.2 Cyst of pancreas; I25.10 Atherosclerotic heart disease of native coronary artery without angina pectoris; I77.9 Disorder of arteries and arterioles, unspecified; K21.9 Gastro-esophageal reflux disease without esophagitis; M54.6 Pain in thoracic spine; E86.0 Dehydration; E78.00 Pure hypercholesterolemia, unspecified; F41.9 Anxiety disorder, unspecified; I35.0 Nonrheumatic aortic (valve) stenosis; D64.9 Anemia, unspecified; E87.6 Hypokalemia; Z79.82 Long term (current) use of aspirin; Z90.49 Acquired absence of other specified parts of digestive tract; Z90.89 Acquired absence of other organs; Z87.891 Personal history of nicotine dependence; Z86.73 Personal history of transient ischemic attack (TIA), and cerebral infarction without residual deficits; I11.0 Hypertensive heart disease with heart failure
CPT/HCPCS: 36415; 80048; 80061; 83735; 85025; 93005; 93306; C9113; J2060; J2270; J2272; J2405; J7050; Q0162

== ENCOUNTER 2023-03-13 17:47 | Inpatient (IN) | payer OTHER ==
[2023-03-13] MEDS ORDERED: Acetaminophen 325 MG TAB PO PRN (20:03)
[2023-03-13] MEDS ORDERED: Acetaminophen/Codeine 30-300mg Tablet PO PRN (20:10)
[2023-03-13] MEDS ORDERED: Transdermal Patch Removal TOP SCH (20:15)
[2023-03-13] MEDS: Atorvastatin Calcium 40 MG TAB PO SCH (20:27)
[2023-03-13] MEDS: Metoprolol Tartrate 25 MG TAB PO SCH (20:27)
[2023-03-13] MEDS: Famotidine 20 MG TAB PO SCH (20:27)
[2023-03-13] MEDS ORDERED: Transdermal Patch Removal TOP PRN (20:30)
[2023-03-13 21:15] LABS: Anion Gap 14 mmol/L (10-20); BUN (Urea Nitrogen) 24 mg/dL (9.8-20.1); Calc. Creatinine Clearance 38 mL/min (70-130); Calcium 9.7 mg/dL (7.8-10.44); Carbon Dioxide 26 mmol/L (23-31); Chloride 104 mmol/L (98-107); Estimated GFR 51; Glucose 103 mg/dL (83-110); Potassium 4.1 mmol/L (3.5-5.1); Sodium 140 mmol/L (136-145)
[2023-03-13] MEDS: Morphine 2 MG/ML VIAL SLOW IVP PRN (21:31)
[2023-03-14] MEDS: Morphine 2 MG/ML VIAL SLOW IVP PRN (03:54)
[2023-03-14 04:42] LABS: #Basophils 0.1 thou/uL (0.0-0.2); #Eosinphils 0.1 thou/uL (0.0-0.7); #Monocytes 1.2 thou/uL (0.11-0.59); #Neutrophils 10.7 thou/uL (1.40-6.50); %Basophils 0.5 % (0.0-1.0); %Lymphocytes 6.7 % (21.0-51.0); %Monocytes 9.4 % (0.0-10.0); %Neutrophils 81.8 % (42.0-75.0); Hematocrit 42.2 % (36.0-47.0); Hemoglobin 13.3 g/dL (12.0-16.0); Mean Corpuscular HGB CONC 31.5 g/dL (32.0-36.0); Mean Corpuscular Hemoglobin 29.4 pg (27.0-31.0); Mean Corpuscular Volume 93.4 fl (78.0-98.0); Mean Platelet Volume 9.9 fL (7.4-10.4); Platelet Count 341 10x3/uL (130-400); RBC Distribution Width 14.9 % (11.5-14.5); Red Blood Cell (RBC) Count 4.52 mill/uL (4.20-5.40); White Blood Cell (WBC) Count 13.1 10x3/uL (4.8-10.8)
[2023-03-14 05:13] LABS: Anion Gap 12 mmol/L (10-20); BUN (Urea Nitrogen) 24 mg/dL (9.8-20.1); Calc. Creatinine Clearance 47 mL/min (70-130); Calcium 9.1 mg/dL (7.8-10.44); Carbon Dioxide 25 mmol/L (23-31); Chloride 103 mmol/L (98-107); Estimated GFR 67; Glucose 105 mg/dL (83-110); Potassium 4.1 mmol/L (3.5-5.1); Sodium 136 mmol/L (136-145)
[2023-03-14] MEDS ORDERED: Furosemide 40 MG TAB PO SCH (07:30)
[2023-03-14] MEDS: Spironolactone 25 MG TAB PO SCH (08:36)
[2023-03-14] MEDS: Metoprolol Tartrate 25 MG TAB PO SCH ×2 (08:36→19:57)
[2023-03-14] MEDS ORDERED: Simethicone Chewable 80 MG TAB PO PRN (10:27)
[2023-03-14] MEDS: traMADol HCl 50 MG TAB PO PRN ×2 (11:10→19:55)
[2023-03-14 13:24] LABS: Bilirubin Negative (Negative); Blood, Urine Negative (Negative); Clarity Turbid (Clear); Glucose, Urine (Dipstick) Normal (Negative); Ketone, Urine Negative (Negative); Leukocyte Negative Leu/uL (Negative); Nitrite Negative (Negative); Protein, Urine (Dipstick) Negative (Neg-Trace); RBC/HPF 0-3 HPF (0-3); Specific Gravity, Urine 1.017 (1.002-1.036); Squamous Epithelial 0-3 HPF (0-3); Urobilinogen Normal mg/dL (Less than 2); WBC/HPF None Seen HPF (0-3)
[2023-03-14 13:33] LABS: Bacteria/HPF 1+ HPF (None Seen)
[2023-03-14] MEDS: Acetaminophen 325 MG TAB PO SCH (16:03)
[2023-03-14] MEDS: Atorvastatin Calcium 40 MG TAB PO SCH (19:57)
[2023-03-14] MEDS: Famotidine 20 MG TAB PO SCH (20:02)
[2023-03-15] MEDS: Acetaminophen 325 MG TAB PO SCH ×4 (01:30→21:00)
[2023-03-15] MEDS: Ondansetron ODT 4 MG TAB PO PRN ×2 (06:48→21:03)
[2023-03-15] MEDS: Aspirin 81 mg Enteric Coated Tablet PO SCH (08:39)
[2023-03-15] MEDS: Metoprolol Tartrate 25 MG TAB PO SCH ×2 (08:39→21:02)
[2023-03-15] MEDS: Spironolactone 25 MG TAB PO SCH (08:39)
[2023-03-15] MEDS: Atorvastatin Calcium 40 MG TAB PO SCH (21:02)
[2023-03-15] MEDS: Famotidine 20 MG TAB PO SCH (21:02)
[2023-03-16] MEDS: traMADol HCl 50 MG TAB PO PRN ×2 (02:08→20:43)
[2023-03-16 05:23] LABS: #Eosinphils 0.2 thou/uL (0.0-0.7); #Monocytes 0.6 thou/uL (0.11-0.59); #Neutrophils 4.6 thou/uL (1.40-6.50); %Basophils 0.3 % (0.0-1.0); %Eosinophils 2.6 % (0.0-10.0); %Lymphocytes 10.2 % (21.0-51.0); %Monocytes 10.2 % (0.0-10.0); %Neutrophils 75.9 % (42.0-75.0); Hematocrit 41.7 % (36.0-47.0); Hemoglobin 13.1 g/dL (12.0-16.0); Mean Corpuscular HGB CONC 31.4 g/dL (32.0-36.0); Mean Corpuscular Volume 92.5 fl (78.0-98.0); Mean Platelet Volume 9.9 fL (7.4-10.4); Platelet Count 308 10x3/uL (130-400); RBC Distribution Width 14.3 % (11.5-14.5); Red Blood Cell (RBC) Count 4.51 mill/uL (4.20-5.40); White Blood Cell (WBC) Count 6.1 10x3/uL (4.8-10.8)
[2023-03-16 06:26] LABS: Anion Gap 15 mmol/L (10-20); BUN (Urea Nitrogen) 20 mg/dL (9.8-20.1); Calc. Creatinine Clearance 42 mL/min (70-130); Carbon Dioxide 26 mmol/L (23-31); Chloride 102 mmol/L (98-107); Estimated GFR 58; Glucose 129 mg/dL (83-110); Potassium 3.8 mmol/L (3.5-5.1); Sodium 139 mmol/L (136-145)
[2023-03-16] MEDS: Metoprolol Tartrate 25 MG TAB PO SCH ×2 (08:56→20:44)
[2023-03-16] MEDS: Spironolactone 25 MG TAB PO SCH (08:56)
[2023-03-16] MEDS: Acetaminophen 325 MG TAB PO SCH ×3 (08:56→20:44)
[2023-03-16] MEDS: Aspirin 81 mg Enteric Coated Tablet PO SCH (08:57)
[2023-03-16] MEDS: Multivit, Therapeutic 1 TAB PO SCH (08:57)
[2023-03-16] MEDS: Cyanocobalamin (Vitamin B-12) 1,000 MCG TAB PO SCH (08:57)
[2023-03-16] MEDS: Lidocaine 4% Patch TD PRN (17:51)
[2023-03-16] MEDS: Calcium Carbonate 500 MG ChewTAB PO PRN (17:53)
[2023-03-16] MEDS: Famotidine 20 MG TAB PO SCH (20:44)
[2023-03-16] MEDS: Atorvastatin Calcium 40 MG TAB PO SCH (20:44)
[2023-03-16] MEDS: Ketorolac Tromethamine 30 MG (1 mL) VIAL IVP PRN (23:13)
[2023-03-17] MEDS: traMADol HCl 50 MG TAB PO PRN ×2 (06:07→21:15)
[2023-03-17] MEDS ORDERED: Morphine 2 MG/ML VIAL SLOW IVP SCH (08:45)
[2023-03-17] MEDS: Acetaminophen 325 MG TAB PO SCH ×3 (08:48→20:26)
[2023-03-17] MEDS: Aspirin 81 mg Enteric Coated Tablet PO SCH (08:49)
[2023-03-17] MEDS: Cyanocobalamin (Vitamin B-12) 1,000 MCG TAB PO SCH (08:49)
[2023-03-17] MEDS: Multivit, Therapeutic 1 TAB PO SCH (08:49)
[2023-03-17] MEDS: Spironolactone 25 MG TAB PO SCH (08:50)
[2023-03-17] MEDS: Metoprolol Tartrate 25 MG TAB PO SCH (08:50)
[2023-03-17] MEDS ORDERED: Sodium Chloride 0.9% 1,000 ML IV SCH (09:00)
[2023-03-17 13:51] LABS: Anion Gap 12 mmol/L (10-20); BUN (Urea Nitrogen) 19 mg/dL (9.8-20.1); Calc. Creatinine Clearance 49 mL/min (70-130); Carbon Dioxide 29 mmol/L (23-31); Chloride 99 mmol/L (98-107); Estimated GFR 71; Glucose 85 mg/dL (83-110); Potassium 3.9 mmol/L (3.5-5.1); Sodium 136 mmol/L (136-145)
[2023-03-17] MEDS: Morphine 2 MG/ML VIAL SLOW IVP PRN (19:41)
[2023-03-17] MEDS: Atorvastatin Calcium 40 MG TAB PO SCH (20:26)
[2023-03-17] MEDS: Famotidine 20 MG TAB PO SCH (20:26)
[2023-03-18] MEDS: Morphine 2 MG/ML VIAL SLOW IVP PRN (03:13)
[2023-03-18 05:33] LABS: Bacteria/HPF 4+ HPF (None Seen); Bilirubin Negative (Negative); Blood, Urine Negative (Negative); CAUTI Indications for Culture Dysuria,urgency,freq; Clarity Clear (Clear); Glucose, Urine (Dipstick) Normal (Negative); Ketone, Urine Negative (Negative); Leukocyte Negative Leu/uL (Negative); Nitrite Negative (Negative); Protein, Urine (Dipstick) Negative (Neg-Trace); RBC/HPF 0-3 HPF (0-3); Specific Gravity, Urine 1.018 (1.002-1.036); Squamous Epithelial None Seen HPF (0-3); Urobilinogen Normal mg/dL (Less than 2); WBC/HPF 0-3 HPF (0-3)
[2023-03-18 05:34] LABS: Urine Culture Reflex No No
[2023-03-18 06:54] LABS: Anion Gap 8 mmol/L (10-20); BUN (Urea Nitrogen) 15 mg/dL (9.8-20.1); Calc. Creatinine Clearance 51 mL/min (70-130); Calcium 8.5 mg/dL (7.8-10.44); Carbon Dioxide 28 mmol/L (23-31); Chloride 104 mmol/L (98-107); Estimated GFR 74; Glucose 95 mg/dL (83-110); Potassium 4.1 mmol/L (3.5-5.1); Sodium 136 mmol/L (136-145)
[2023-03-18] MEDS: Aspirin 81 mg Enteric Coated Tablet PO SCH (08:34)
[2023-03-18] MEDS: traMADol HCl 50 MG TAB PO PRN (08:34)
[2023-03-18] MEDS: Acetaminophen 325 MG TAB PO SCH ×3 (08:34→21:06)
[2023-03-18] MEDS: Multivit, Therapeutic 1 TAB PO SCH (08:35)
[2023-03-18] MEDS: Ondansetron ODT 4 MG TAB PO PRN (08:35)
[2023-03-18] MEDS: Cyanocobalamin (Vitamin B-12) 1,000 MCG TAB PO SCH (08:35)
[2023-03-18] MEDS ORDERED: Ipratropium/Albuterol 3 ML NEB NEB PRN (08:56)
[2023-03-18] MEDS ORDERED: guaiFENesin ER 600 MG TAB PO SCH (09:00)
[2023-03-18] MEDS ORDERED: Ipratropium/Albuterol 3 ML NEB NEB SCH (09:15)
[2023-03-18] MEDS: LevoFLOXacin 750 mg/D5W 750 MG in Premix 1 BAG IVPB SCH (11:45)
[2023-03-18] MEDS ORDERED: LevoFLOXacin 750 mg/D5W 750 MG in Premix 1 BAG IVPB SCH (12:00)
[2023-03-18] MEDS ORDERED: Scopolamine 1 mg/72 hour Patch TD SCH (13:00)
[2023-03-18] MEDS: Ketorolac Tromethamine 30 MG (1 mL) VIAL IVP PRN ×2 (14:36→20:33)
[2023-03-18] MEDS: guaiFENesin/Codeine 200 mg/20 mg 10 ml Cup PO PRN (14:37)
[2023-03-18] MEDS: metroNIDAZOLE 500 MG in Premix 1 BAG IVPB SCH ×2 (14:37→20:36)
[2023-03-18] MEDS: Atorvastatin Calcium 40 MG TAB PO SCH (21:06)
[2023-03-18] MEDS: Famotidine 20 MG TAB PO SCH (21:07)
[2023-03-19] MEDS: metroNIDAZOLE 500 MG in Premix 1 BAG IVPB SCH ×3 (05:01→20:37)
[2023-03-19] MEDS: Morphine 2 MG/ML VIAL SLOW IVP PRN (05:03)
[2023-03-19 07:49] LABS: #Eosinphils 0.2 thou/uL (0.0-0.7); #Monocytes 0.6 thou/uL (0.11-0.59); #Neutrophils 3.3 thou/uL (1.40-6.50); %Basophils 0.6 % (0.0-1.0); %Eosinophils 3.1 % (0.0-10.0); %Lymphocytes 16.9 % (21.0-51.0); %Monocytes 12.4 % (0.0-10.0); %Neutrophils 66.4 % (42.0-75.0); Hematocrit 40.3 % (36.0-47.0); Hemoglobin 12.5 g/dL (12.0-16.0); Mean Corpuscular Volume 93.5 fl (78.0-98.0); Mean Platelet Volume 9.5 fL (7.4-10.4); Platelet Count 234 10x3/uL (130-400); RBC Distribution Width 13.7 % (11.5-14.5); Red Blood Cell (RBC) Count 4.31 mill/uL (4.20-5.40); White Blood Cell (WBC) Count 4.9 10x3/uL (4.8-10.8)
[2023-03-19 08:15] LABS: Anion Gap 10 mmol/L (10-20); BUN (Urea Nitrogen) 20 mg/dL (9.8-20.1); Calc. Creatinine Clearance 55 mL/min (70-130); Calcium 8.7 mg/dL (7.8-10.44); Carbon Dioxide 27 mmol/L (23-31); Chloride 105 mmol/L (98-107); Estimated GFR 81; Glucose 68 mg/dL (83-110); Potassium 4.3 mmol/L (3.5-5.1); Sodium 138 mmol/L (136-145)
[2023-03-19] MEDS: Cyanocobalamin (Vitamin B-12) 1,000 MCG TAB PO SCH (09:21)
[2023-03-19] MEDS: Acetaminophen 325 MG TAB PO SCH ×3 (09:21→20:37)
[2023-03-19] MEDS: Multivit, Therapeutic 1 TAB PO SCH (09:21)
[2023-03-19] MEDS: Aspirin 81 mg Enteric Coated Tablet PO SCH (09:21)
[2023-03-19] MEDS: traMADol HCl 50 MG TAB PO PRN (16:35)
[2023-03-19] MEDS: Melatonin 3 MG TAB PO PRN (20:37)
[2023-03-19] MEDS: Atorvastatin Calcium 40 MG TAB PO SCH (20:37)
[2023-03-20 04:28] LABS: #Eosinphils 0.2 thou/uL (0.0-0.7); #Monocytes 0.8 thou/uL (0.11-0.59); #Neutrophils 3.8 thou/uL (1.40-6.50); %Basophils 0.7 % (0.0-1.0); %Eosinophils 4.1 % (0.0-10.0); %Lymphocytes 12.3 % (21.0-51.0); %Monocytes 14.1 % (0.0-10.0); %Neutrophils 68.3 % (42.0-75.0); Hematocrit 38.1 % (36.0-47.0); Mean Corpuscular HGB CONC 31.5 g/dL (32.0-36.0); Mean Corpuscular Hemoglobin 28.9 pg (27.0-31.0); Mean Corpuscular Volume 91.8 fl (78.0-98.0); Mean Platelet Volume 10.2 fL (7.4-10.4); Platelet Count 246 10x3/uL (130-400); RBC Distribution Width 13.8 % (11.5-14.5); Red Blood Cell (RBC) Count 4.15 mill/uL (4.20-5.40); White Blood Cell (WBC) Count 5.6 10x3/uL (4.8-10.8)
[2023-03-20 04:47] LABS: Anion Gap 10 mmol/L (10-20); BUN (Urea Nitrogen) 28 mg/dL (9.8-20.1); Calc. Creatinine Clearance 48 mL/min (70-130); Calcium 8.6 mg/dL (7.8-10.44); Carbon Dioxide 26 mmol/L (23-31); Chloride 104 mmol/L (98-107); Estimated GFR 69; Glucose 96 mg/dL (83-110); Potassium 4.1 mmol/L (3.5-5.1); Sodium 136 mmol/L (136-145)
[2023-03-20] MEDS: metroNIDAZOLE 500 MG in Premix 1 BAG IVPB SCH ×3 (05:13→21:13)
[2023-03-20] MEDS: traMADol HCl 50 MG TAB PO PRN ×3 (05:17→21:15)
[2023-03-20] MEDS: Multivit, Therapeutic 1 TAB PO SCH (08:26)
[2023-03-20] MEDS: Aspirin 81 mg Enteric Coated Tablet PO SCH (08:26)
[2023-03-20] MEDS: Acetaminophen 325 MG TAB PO SCH ×3 (08:26→21:14)
[2023-03-20] MEDS: Cyanocobalamin (Vitamin B-12) 1,000 MCG TAB PO SCH (08:26)
[2023-03-20] MEDS: LevoFLOXacin 750 mg/D5W 750 MG in Premix 1 BAG IVPB SCH (11:26)
[2023-03-20] MEDS ORDERED: Spironolactone 25 MG TAB PO SCH (13:45)
[2023-03-20] MEDS: Melatonin 3 MG TAB PO PRN (21:14)
[2023-03-20] MEDS: Atorvastatin Calcium 40 MG TAB PO SCH (21:14)
[2023-03-21] MEDS: metroNIDAZOLE 500 MG in Premix 1 BAG IVPB SCH ×3 (05:38→22:57)
[2023-03-21] MEDS: Acetaminophen 325 MG TAB PO SCH ×3 (08:50→20:17)
[2023-03-21] MEDS: Aspirin 81 mg Enteric Coated Tablet PO SCH (08:51)
[2023-03-21] MEDS: Cyanocobalamin (Vitamin B-12) 1,000 MCG TAB PO SCH (08:51)
[2023-03-21] MEDS: Multivit, Therapeutic 1 TAB PO SCH (08:51)
[2023-03-21] MEDS: traMADol HCl 50 MG TAB PO PRN ×2 (08:57→15:25)
[2023-03-21] MEDS: Calcium Carbonate 500 MG ChewTAB PO PRN (08:57)
[2023-03-21] MEDS ORDERED: Sertraline 25 MG TAB PO SCH (09:38)
[2023-03-21] MEDS: Atorvastatin Calcium 40 MG TAB PO SCH (20:18)
[2023-03-21] MEDS: Morphine 2 MG/ML VIAL SLOW IVP PRN (20:19)
[2023-03-22] MEDS: Ondansetron ODT 4 MG TAB PO PRN (04:57)
[2023-03-22] MEDS: metroNIDAZOLE 500 MG in Premix 1 BAG IVPB SCH (05:09)
[2023-03-22] MEDS: traMADol HCl 50 MG TAB PO PRN ×3 (05:14→18:32)
[2023-03-22] MEDS: ALPRAZolam 0.25 MG TAB PO PRN ×2 (07:45→20:39)
[2023-03-22] MEDS: Aspirin 81 mg Enteric Coated Tablet PO SCH (08:57)
[2023-03-22] MEDS: Sertraline 25 MG TAB PO SCH (08:57)
[2023-03-22] MEDS: Acetaminophen 325 MG TAB PO SCH ×3 (08:57→20:37)
[2023-03-22] MEDS: Cyanocobalamin (Vitamin B-12) 1,000 MCG TAB PO SCH (08:57)
[2023-03-22] MEDS: Multivit, Therapeutic 1 TAB PO SCH (08:57)
[2023-03-22] MEDS: Spironolactone 25 MG TAB PO SCH (08:57)
[2023-03-22] MEDS: Metoprolol Tartrate 25 MG TAB PO SCH (09:01)
[2023-03-22] MEDS: Milk Of Magnesia 30 ML UDCUP PO PRN (10:03)
[2023-03-22] MEDS: LevoFLOXacin 750 mg/D5W 750 MG in Premix 1 BAG IVPB SCH (11:36)
[2023-03-22] MEDS: metroNIDAZOLE 500 MG TAB PO SCH ×2 (14:13→20:39)
[2023-03-22] MEDS: Atorvastatin Calcium 40 MG TAB PO SCH (20:38)
[2023-03-22] MEDS: Melatonin 3 MG TAB PO PRN (20:39)
[2023-03-23] MEDS: Metoprolol Tartrate 25 MG TAB PO SCH ×3 (00:28→22:03)
[2023-03-23] MEDS: LevoFLOXacin 750 MG TAB PO SCH (05:20)
[2023-03-23] MEDS: Morphine 2 MG/ML VIAL SLOW IVP PRN ×2 (05:21→22:03)
[2023-03-23 07:43] VITALS: BMI 19.5
[2023-03-23] MEDS: Acetaminophen 325 MG TAB PO SCH ×3 (09:49→22:02)
[2023-03-23] MEDS: Cyanocobalamin (Vitamin B-12) 1,000 MCG TAB PO SCH (09:51)
[2023-03-23] MEDS: metroNIDAZOLE 500 MG TAB PO SCH ×3 (09:51→22:03)
[2023-03-23] MEDS: Spironolactone 25 MG TAB PO SCH (09:51)
[2023-03-23] MEDS: Multivit, Therapeutic 1 TAB PO SCH (09:51)
[2023-03-23] MEDS: Aspirin 81 mg Enteric Coated Tablet PO SCH (09:51)
[2023-03-23] MEDS: Sertraline 25 MG TAB PO SCH (09:51)
[2023-03-23] MEDS: Milk Of Magnesia 30 ML UDCUP PO PRN (09:55)
[2023-03-23] MEDS: ALPRAZolam 0.25 MG TAB PO PRN ×2 (09:55→22:03)
[2023-03-23] MEDS: guaiFENesin/Codeine 200 mg/20 mg 10 ml Cup PO PRN (09:56)
[2023-03-23] MEDS: Atorvastatin Calcium 40 MG TAB PO SCH (22:02)
[2023-03-23] MEDS: traMADol HCl 50 MG TAB PO PRN (22:09)
[2023-03-24] MEDS: LevoFLOXacin 750 MG TAB PO SCH (05:09)
[2023-03-24] MEDS: traMADol HCl 50 MG TAB PO PRN (05:09)
[2023-03-24] MEDS: Acetaminophen 325 MG TAB PO SCH ×3 (09:07→20:31)
[2023-03-24] MEDS: metroNIDAZOLE 500 MG TAB PO SCH ×3 (09:07→20:31)
[2023-03-24] MEDS: Cyanocobalamin (Vitamin B-12) 1,000 MCG TAB PO SCH (09:07)
[2023-03-24] MEDS: Sertraline 25 MG TAB PO SCH (09:07)
[2023-03-24] MEDS: Multivit, Therapeutic 1 TAB PO SCH (09:07)
[2023-03-24] MEDS: Aspirin 81 mg Enteric Coated Tablet PO SCH (09:07)
[2023-03-24] MEDS: Metoprolol Tartrate 25 MG TAB PO SCH ×2 (09:08→20:31)
[2023-03-24] MEDS: Spironolactone 25 MG TAB PO SCH (09:08)
[2023-03-24] MEDS: ALPRAZolam 0.25 MG TAB PO PRN ×2 (09:15→20:35)
[2023-03-24] MEDS ORDERED: Gabapentin 100 MG CAP PO SCH (09:45)
[2023-03-24] MEDS: guaiFENesin/Codeine 200 mg/20 mg 10 ml Cup PO PRN ×2 (16:02→23:52)
[2023-03-24] MEDS ORDERED: Tamsulosin HCl 0.4 MG CAP PO SCH (17:30)
[2023-03-24] MEDS: Atorvastatin Calcium 40 MG TAB PO SCH (20:31)
[2023-03-24] MEDS: Gabapentin 100 MG CAP PO SCH (20:31)
[2023-03-25] MEDS: Melatonin 3 MG TAB PO PRN ×2 (01:56→20:05)
[2023-03-25] MEDS: LevoFLOXacin 750 MG TAB PO SCH (05:02)
[2023-03-25] MEDS: Acetaminophen 325 MG TAB PO SCH ×3 (09:27→20:05)
[2023-03-25] MEDS: Spironolactone 25 MG TAB PO SCH (09:28)
[2023-03-25] MEDS: Sertraline 25 MG TAB PO SCH (09:28)
[2023-03-25] MEDS: Cyanocobalamin (Vitamin B-12) 1,000 MCG TAB PO SCH (09:29)
[2023-03-25] MEDS: Metoprolol Tartrate 25 MG TAB PO SCH ×2 (09:29→20:06)
[2023-03-25] MEDS: Gabapentin 100 MG CAP PO SCH ×2 (09:29→20:06)
[2023-03-25] MEDS: Aspirin 81 mg Enteric Coated Tablet PO SCH (09:29)
[2023-03-25] MEDS: metroNIDAZOLE 500 MG TAB PO SCH ×2 (09:29→15:28)
[2023-03-25] MEDS: Multivit, Therapeutic 1 TAB PO SCH (09:29)
[2023-03-25] MEDS: ALPRAZolam 0.25 MG TAB PO PRN ×2 (13:37→21:45)
[2023-03-25] MEDS: Tamsulosin HCl 0.4 MG CAP PO SCH (13:37)
[2023-03-25] MEDS: Atorvastatin Calcium 40 MG TAB PO SCH (20:05)
[2023-03-26] MEDS: Lidocaine 4% Patch TD PRN (00:59)
[2023-03-26] MEDS: traMADol HCl 50 MG TAB PO PRN ×3 (00:59→21:42)
[2023-03-26] MEDS: Gabapentin 100 MG CAP PO SCH ×2 (08:55→20:19)
[2023-03-26] MEDS: Sertraline 25 MG TAB PO SCH (08:55)
[2023-03-26] MEDS: Spironolactone 25 MG TAB PO SCH (08:55)
[2023-03-26] MEDS: Multivit, Therapeutic 1 TAB PO SCH (08:56)
[2023-03-26] MEDS: Cyanocobalamin (Vitamin B-12) 1,000 MCG TAB PO SCH (08:56)
[2023-03-26] MEDS: Tamsulosin HCl 0.4 MG CAP PO SCH (08:56)
[2023-03-26] MEDS: Aspirin 81 mg Enteric Coated Tablet PO SCH (08:56)
[2023-03-26] MEDS: Acetaminophen 325 MG TAB PO SCH ×3 (08:56→20:19)
[2023-03-26] MEDS: Metoprolol Tartrate 25 MG TAB PO SCH ×2 (08:56→20:18)
[2023-03-26 10:56] LABS: #Eosinphils 0.3 thou/uL (0.0-0.7); #Monocytes 0.7 thou/uL (0.11-0.59); #Neutrophils 5.5 thou/uL (1.40-6.50); %Basophils 0.4 % (0.0-1.0); %Eosinophils 4.4 % (0.0-10.0); %Lymphocytes 8.6 % (21.0-51.0); %Monocytes 10.2 % (0.0-10.0); %Neutrophils 75.8 % (42.0-75.0); Hematocrit 42.3 % (36.0-47.0); Hemoglobin 13.4 g/dL (12.0-16.0); Mean Corpuscular HGB CONC 31.7 g/dL (32.0-36.0); Mean Corpuscular Hemoglobin 29.1 pg (27.0-31.0); Mean Platelet Volume 10.2 fL (7.4-10.4); Platelet Count 205 10x3/uL (130-400); White Blood Cell (WBC) Count 7.2 10x3/uL (4.8-10.8)
[2023-03-26 11:29] LABS: Anion Gap 13 mmol/L (10-20); BUN (Urea Nitrogen) 10 mg/dL (9.8-20.1); Calc. Creatinine Clearance 39 mL/min (70-130); Calcium 9.2 mg/dL (7.8-10.44); Carbon Dioxide 26 mmol/L (23-31); Chloride 103 mmol/L (98-107); Estimated GFR 70; Glucose 134 mg/dL (83-110); Potassium 3.7 mmol/L (3.5-5.1); Sodium 138 mmol/L (136-145)
[2023-03-26] MEDS: ALPRAZolam 0.25 MG TAB PO PRN (20:17)
[2023-03-26] MEDS: Atorvastatin Calcium 40 MG TAB PO SCH (20:18)
[2023-03-26] MEDS: Melatonin 3 MG TAB PO PRN (21:41)
[2023-03-27 05:49] LABS: #Eosinphils 0.3 thou/uL (0.0-0.7); #Monocytes 0.9 thou/uL (0.11-0.59); #Neutrophils 6.2 thou/uL (1.40-6.50); %Basophils 0.5 % (0.0-1.0); %Eosinophils 3.9 % (0.0-10.0); %Lymphocytes 11.4 % (21.0-51.0); %Monocytes 10.7 % (0.0-10.0); %Neutrophils 72.9 % (42.0-75.0); Hematocrit 43.1 % (36.0-47.0); Hemoglobin 13.8 g/dL (12.0-16.0); Mean Corpuscular Hemoglobin 29.2 pg (27.0-31.0); Mean Corpuscular Volume 91.1 fl (78.0-98.0); Mean Platelet Volume 10.6 fL (7.4-10.4); Platelet Count 229 10x3/uL (130-400); RBC Distribution Width 13.9 % (11.5-14.5); Red Blood Cell (RBC) Count 4.73 mill/uL (4.20-5.40); White Blood Cell (WBC) Count 8.5 10x3/uL (4.8-10.8)
[2023-03-27 06:13] LABS: Anion Gap 10 mmol/L (10-20); BUN (Urea Nitrogen) 12 mg/dL (9.8-20.1); Calc. Creatinine Clearance 44 mL/min (70-130); Calcium 9.2 mg/dL (7.8-10.44); Carbon Dioxide 25 mmol/L (23-31); Chloride 105 mmol/L (98-107); Estimated GFR 81; Glucose 97 mg/dL (83-110); Potassium 4.1 mmol/L (3.5-5.1); Sodium 136 mmol/L (136-145)
[2023-03-27] MEDS: Sertraline 25 MG TAB PO SCH (09:26)
[2023-03-27] MEDS: Tamsulosin HCl 0.4 MG CAP PO SCH (09:26)
[2023-03-27] MEDS: Acetaminophen 325 MG TAB PO SCH ×3 (09:26→20:07)
[2023-03-27] MEDS: Metoprolol Tartrate 25 MG TAB PO SCH ×2 (09:26→20:07)
[2023-03-27] MEDS: Multivit, Therapeutic 1 TAB PO SCH (09:26)
[2023-03-27] MEDS: Aspirin 81 mg Enteric Coated Tablet PO SCH (09:26)
[2023-03-27] MEDS: Spironolactone 25 MG TAB PO SCH (09:26)
[2023-03-27] MEDS: Gabapentin 100 MG CAP PO SCH ×2 (09:26→20:06)
[2023-03-27] MEDS: Cyanocobalamin (Vitamin B-12) 1,000 MCG TAB PO SCH (09:26)
[2023-03-27] MEDS: ALPRAZolam 0.25 MG TAB PO PRN ×2 (09:29→20:07)
[2023-03-27] MEDS: Atorvastatin Calcium 40 MG TAB PO SCH (20:06)
[2023-03-27] MEDS: traMADol HCl 50 MG TAB PO PRN (20:10)
[2023-03-27] MEDS: Melatonin 3 MG TAB PO PRN (20:10)
[2023-03-28] MEDS: Sertraline 25 MG TAB PO SCH (09:37)
[2023-03-28] MEDS: ALPRAZolam 0.25 MG TAB PO PRN ×2 (09:37→22:09)
[2023-03-28] MEDS: traMADol HCl 50 MG TAB PO PRN ×2 (09:37→22:08)
[2023-03-28] MEDS: Multivit, Therapeutic 1 TAB PO SCH (09:37)
[2023-03-28] MEDS: Tamsulosin HCl 0.4 MG CAP PO SCH (09:37)
[2023-03-28] MEDS: Aspirin 81 mg Enteric Coated Tablet PO SCH (09:37)
[2023-03-28] MEDS: Cyanocobalamin (Vitamin B-12) 1,000 MCG TAB PO SCH (09:37)
[2023-03-28] MEDS: Acetaminophen 325 MG TAB PO SCH ×3 (09:38→22:12)
[2023-03-28] MEDS: Gabapentin 100 MG CAP PO SCH ×2 (09:38→22:11)
[2023-03-28] MEDS: Metoprolol Tartrate 25 MG TAB PO SCH ×2 (09:39→22:11)
[2023-03-28] MEDS: Spironolactone 25 MG TAB PO SCH (09:39)
[2023-03-28] MEDS: Atorvastatin Calcium 40 MG TAB PO SCH (22:08)
[2023-03-28] MEDS: Melatonin 3 MG TAB PO PRN (23:38)
[2023-03-29] MEDS: Spironolactone 25 MG TAB PO SCH (08:57)
[2023-03-29] MEDS: Acetaminophen 325 MG TAB PO SCH (09:00)
[2023-03-29] MEDS: Aspirin 81 mg Enteric Coated Tablet PO SCH (09:00)
[2023-03-29] MEDS: Gabapentin 100 MG CAP PO SCH (09:01)
[2023-03-29] MEDS: Cyanocobalamin (Vitamin B-12) 1,000 MCG TAB PO SCH (09:01)
[2023-03-29] MEDS: Sertraline 25 MG TAB PO SCH (09:02)
[2023-03-29] MEDS: Tamsulosin HCl 0.4 MG CAP PO SCH (09:02)
[2023-03-29] MEDS: Metoprolol Tartrate 25 MG TAB PO SCH (09:02)
[2023-03-29] MEDS: ALPRAZolam 0.25 MG TAB PO PRN (09:02)
[2023-03-29] MEDS: traMADol HCl 50 MG TAB PO PRN (09:02)
[2023-03-29] MEDS: Multivit, Therapeutic 1 TAB PO SCH (09:02)
[2023-03-29 09:34] VITALS: BP 111/76; TEMP 97.6
== END 2023-03-29 10:19 | disposition home or self-care (01) | DRG 542 ==
LOC: SJJU 19:15 → 2NO 22:24 → OBSVTOIN 03-14 14:42 → SURG A 03-24 00:38 → UNDODISIN 03-28 17:55
PROVIDERS: ADMIT Family Medicine; ATTEND Hospitalist
PROC: 0T9B70Z Drainage of Bladder with Drainage Device, Via Natural or Artificial Opening (ICD-10-PCS; principal; 2023-03-19)
DX: M48.54XA Collapsed vertebra, not elsewhere classified, thoracic region, initial encounter for fracture (principal); J69.0 Pneumonitis due to inhalation of food and vomit; I50.22 Chronic systolic (congestive) heart failure; I13.0 Hypertensive heart and chronic kidney disease with heart failure and stage 1 through stage 4 chronic kidney disease, or unspecified chronic kidney disease; K21.9 Gastro-esophageal reflux disease without esophagitis; E78.5 Hyperlipidemia, unspecified; N18.2 Chronic kidney disease, stage 2 (mild); Z66 Do not resuscitate; I35.0 Nonrheumatic aortic (valve) stenosis; F32.A Depression, unspecified; F41.9 Anxiety disorder, unspecified; R33.9 Retention of urine, unspecified; R34 Anuria and oliguria; Z86.73 Personal history of transient ischemic attack (TIA), and cerebral infarction without residual deficits; Z79.899 Other long term (current) drug therapy; Z90.49 Acquired absence of other specified parts of digestive tract; Z90.710 Acquired absence of both cervix and uterus; Z79.82 Long term (current) use of aspirin
CPT/HCPCS: 36415; 71045; 72070; 74230; 80048; 81001; 83735; 85025; 96374; 96376; G0378; J1885; J1956; J2272; J7050; Q0162

== ENCOUNTER 2023-03-29 19:54 | Inpatient (IN) | payer OTHER ==
[2023-03-29] MEDS ORDERED: Metoprolol Tartrate 25 MG TAB ONE (20:28)
[2023-03-29 21:11] LABS: #Eosinphils 0.1 thou/uL (0.0-0.7); #Monocytes 0.7 thou/uL (0.11-0.59); #Neutrophils 5.7 thou/uL (1.40-6.50); %Basophils 0.4 % (0.0-1.0); %Eosinophils 1.9 % (0.0-10.0); %Lymphocytes 9.3 % (21.0-51.0); %Monocytes 10.2 % (0.0-10.0); %Neutrophils 77.9 % (42.0-75.0); Hematocrit 43.5 % (36.0-47.0); Hemoglobin 13.9 g/dL (12.0-16.0); Mean Corpuscular Hemoglobin 28.8 pg (27.0-31.0); Mean Corpuscular Volume 90.1 fl (78.0-98.0); Mean Platelet Volume 10.3 fL (7.4-10.4); Platelet Count 237 10x3/uL (130-400); RBC Distribution Width 13.7 % (11.5-14.5); Red Blood Cell (RBC) Count 4.83 mill/uL (4.20-5.40); White Blood Cell (WBC) Count 7.3 10x3/uL (4.8-10.8)
[2023-03-29 21:35] LABS: ALT (SGPT) 20 U/L (8-55); AST (SGOT) 39 U/L (5-34); Albumin 3.5 g/dL (3.4-4.8); Alkaline Phosphatase 120 U/L (40-110); Anion Gap 13 mmol/L (10-20); BUN (Urea Nitrogen) 15 mg/dL (9.8-20.1); Bilirubin, Total 0.6 mg/dL (0.2-1.2); CK (CPK) 67 U/L (29-168); Calc. Creatinine Clearance 0 mL/min (70-130); Calcium 9.6 mg/dL (7.8-10.44); Carbon Dioxide 27 mmol/L (23-31); Chloride 101 mmol/L (98-107); Estimated GFR 73; Globulin 2.8 g/dL (2.4-3.5); Glucose 101 mg/dL (83-110); Potassium 4.2 mmol/L (3.5-5.1); Protein, Total 6.3 g/dL (5.8-8.1); Sodium 137 mmol/L (136-145)
[2023-03-29 21:40] LABS: Troponin I 0.013 ng/mL (< 0.028)
[2023-03-30 01:07] LABS: Bacteria/HPF None Seen HPF (None Seen); Bilirubin Negative (Negative); Blood, Urine 1+ (Negative); CAUTI Indications for Culture Dysuria,urgency,freq; Clarity Clear (Clear); Glucose, Urine (Dipstick) Normal (Negative); Ketone, Urine Trace mg/dL (Negative); Leukocyte Negative Leu/uL (Negative); Nitrite Negative (Negative); Protein, Urine (Dipstick) Negative (Neg-Trace); RBC/HPF 0-3 HPF (0-3); Specific Gravity, Urine 1.015 (1.002-1.036); Squamous Epithelial 0-3 HPF (0-3); Urobilinogen Normal mg/dL (Less than 2); WBC/HPF 0-3 HPF (0-3)
[2023-03-30 01:23] LABS: Urine Culture Reflex No No
[2023-03-30] MEDS ORDERED: Ondansetron ODT 4 MG TAB PO PRN (02:03)
[2023-03-30] MEDS ORDERED: Ondansetron PF 4 MG/2 ML Vial IVP PRN (02:03)
[2023-03-30] MEDS ORDERED: Acetaminophen 325 MG TAB PO PRN (02:03)
[2023-03-30 05:07] VITALS: BMI 15.7
[2023-03-30] MEDS: LevoFLOXacin 750 MG TAB PO SCH (05:39)
[2023-03-30] MEDS: Aspirin 81 mg Enteric Coated Tablet PO SCH (08:14)
[2023-03-30] MEDS: Gabapentin 100 MG CAP PO SCH ×2 (08:14→20:33)
[2023-03-30] MEDS: Metoprolol Tartrate 25 MG TAB PO SCH ×2 (08:14→20:33)
[2023-03-30] MEDS: Spironolactone 25 MG TAB PO SCH (08:14)
[2023-03-30] MEDS: traMADol HCl 50 MG TAB PO PRN ×3 (08:14→23:11)
[2023-03-30] MEDS: Tamsulosin HCl 0.4 MG CAP PO SCH (08:14)
[2023-03-30 11:40] LABS: #Eosinphils 0.2 thou/uL (0.0-0.7); #Monocytes 0.6 thou/uL (0.11-0.59); #Neutrophils 5.8 thou/uL (1.40-6.50); %Basophils 0.4 % (0.0-1.0); %Eosinophils 2.2 % (0.0-10.0); %Lymphocytes 9.7 % (21.0-51.0); %Monocytes 8.6 % (0.0-10.0); %Neutrophils 78.6 % (42.0-75.0); Hematocrit 39.5 % (36.0-47.0); Hemoglobin 12.8 g/dL (12.0-16.0); Mean Corpuscular HGB CONC 32.4 g/dL (32.0-36.0); Mean Corpuscular Volume 89.6 fl (78.0-98.0); Platelet Count 216 10x3/uL (130-400); RBC Distribution Width 13.6 % (11.5-14.5); Red Blood Cell (RBC) Count 4.41 mill/uL (4.20-5.40); White Blood Cell (WBC) Count 7.4 10x3/uL (4.8-10.8)
[2023-03-30 12:06] LABS: Anion Gap 15 mmol/L (10-20); BUN (Urea Nitrogen) 15 mg/dL (9.8-20.1); Calc. Creatinine Clearance 32 mL/min (70-130); Carbon Dioxide 22 mmol/L (23-31); Chloride 104 mmol/L (98-107); Estimated GFR 79; Glucose 75 mg/dL (83-110); Potassium 3.9 mmol/L (3.5-5.1); Sodium 137 mmol/L (136-145)
[2023-03-30 12:10] LABS: Magnesium 1.8 mg/dL (1.6-2.6); Phosphorus 2.9 mg/dL (2.3-4.7)
[2023-03-30] MEDS ORDERED: Lidocaine 4% Patch TD PRN (16:00)
[2023-03-30] MEDS ORDERED: Transdermal Patch Removal TOP PRN (16:00)
[2023-03-30] MEDS: Sertraline 25 MG TAB PO SCH (20:33)
[2023-03-30] MEDS: Atorvastatin Calcium 40 MG TAB PO SCH (20:33)
[2023-03-30] MEDS ORDERED: Simethicone Chewable 80 MG TAB PO PRN (20:43)
[2023-03-30] MEDS ORDERED: Sodium Chloride 0.9% 500 ML IV SCH (21:00)
[2023-03-31] MEDS: LevoFLOXacin 750 MG TAB PO SCH (05:45)
[2023-03-31] MEDS: Multivit, Therapeutic 1 TAB PO SCH (07:33)
[2023-03-31] MEDS: Gabapentin 100 MG CAP PO SCH ×2 (07:34→23:39)
[2023-03-31] MEDS: Aspirin 81 mg Enteric Coated Tablet PO SCH (07:34)
[2023-03-31] MEDS: Senokot S 8.6-50 MG TAB PO SCH (07:34)
[2023-03-31] MEDS: traMADol HCl 50 MG TAB PO PRN (07:34)
[2023-03-31] MEDS: Tamsulosin HCl 0.4 MG CAP PO SCH (07:34)
[2023-03-31] MEDS: Spironolactone 25 MG TAB PO SCH (07:34)
[2023-03-31] MEDS: ALPRAZolam 0.25 MG TAB PO PRN (07:35)
[2023-03-31] MEDS: Metoprolol Tartrate 25 MG TAB PO SCH ×2 (07:35→23:31)
[2023-03-31 10:29] LABS: #Eosinphils 0.1 thou/uL (0.0-0.7); #Neutrophils 10.8 thou/uL (1.40-6.50); %Basophils 0.2 % (0.0-1.0); %Eosinophils 0.4 % (0.0-10.0); %Lymphocytes 5.7 % (21.0-51.0); %Neutrophils 85.4 % (42.0-75.0); Hematocrit 39.1 % (36.0-47.0); Hemoglobin 12.6 g/dL (12.0-16.0); Mean Corpuscular HGB CONC 32.2 g/dL (32.0-36.0); Mean Corpuscular Hemoglobin 28.5 pg (27.0-31.0); Mean Corpuscular Volume 88.5 fl (78.0-98.0); Mean Platelet Volume 9.9 fL (7.4-10.4); Platelet Count 250 10x3/uL (130-400); RBC Distribution Width 13.7 % (11.5-14.5); Red Blood Cell (RBC) Count 4.42 mill/uL (4.20-5.40); White Blood Cell (WBC) Count 12.7 10x3/uL (4.8-10.8)
[2023-03-31 10:49] LABS: Anion Gap 11 mmol/L (10-20); Calcium 8.7 mg/dL (7.8-10.44); Carbon Dioxide 24 mmol/L (23-31); Chloride 104 mmol/L (98-107); Sodium 135 mmol/L (136-145)
[2023-03-31 10:57] LABS: BUN (Urea Nitrogen) 21 mg/dL (9.8-20.1); Calc. Creatinine Clearance 29 mL/min (70-130); Estimated GFR 71; Glucose 168 mg/dL (83-110)
[2023-03-31] MEDS ORDERED: Iopamidol 370 76% 100 ML VIAL ONE (13:28)
[2023-03-31] MEDS: Lidocaine 4% Topical Sol 50 ML BOT TOP SCH ×2 (14:28→23:40)
[2023-03-31] MEDS ORDERED: Mineral Oil ENEMA PR SCH (15:45)
[2023-03-31] MEDS ORDERED: Ketorolac Tromethamine 30 MG (1 mL) VIAL IVP SCH (20:00)
[2023-03-31] MEDS ORDERED: Sodium Chloride 0.9% 500 ML IV SCH ×3 (20:00→22:00)
[2023-03-31 21:39] LABS: #Eosinphils 0.1 thou/uL (0.0-0.7); #Monocytes 0.8 thou/uL (0.11-0.59); #Neutrophils 5.4 thou/uL (1.40-6.50); %Basophils 0.1 % (0.0-1.0); %Eosinophils 1.6 % (0.0-10.0); %Lymphocytes 8.5 % (21.0-51.0); %Monocytes 11.1 % (0.0-10.0); %Neutrophils 78.1 % (42.0-75.0); Hematocrit 35.2 % (36.0-47.0); Hemoglobin 11.3 g/dL (12.0-16.0); Mean Corpuscular HGB CONC 32.1 g/dL (32.0-36.0); Mean Corpuscular Hemoglobin 29.1 pg (27.0-31.0); Mean Corpuscular Volume 90.7 fl (78.0-98.0); Platelet Count 204 10x3/uL (130-400); Red Blood Cell (RBC) Count 3.88 mill/uL (4.20-5.40)
[2023-03-31 21:56] LABS: Lactic Acid 2.1 mmol/L (0.5-2.2)
[2023-03-31] MEDS ORDERED: Cefepime 1 GM in Sodium Chloride 0.9% 100 ML IVPB SCH (22:00)
[2023-03-31] MEDS ORDERED: NOREPINEPHRINE 8 MG/250 ML-D5W 250 ML IVPB SCH (22:00)
[2023-03-31 22:01] LABS: ALT (SGPT) 15 U/L (8-55); AST (SGOT) 22 U/L (5-34); Albumin 2.8 g/dL (3.4-4.8); Alkaline Phosphatase 94 U/L (40-110); Anion Gap 10 mmol/L (10-20); BUN (Urea Nitrogen) 21 mg/dL (9.8-20.1); Bilirubin, Total 0.3 mg/dL (0.2-1.2); Calc. Creatinine Clearance 30 mL/min (70-130); Calcium 8.1 mg/dL (7.8-10.44); Carbon Dioxide 24 mmol/L (23-31); Chloride 107 mmol/L (98-107); Estimated GFR 74; Globulin 1.5 g/dL (2.4-3.5); Glucose 126 mg/dL (83-110); Potassium 3.9 mmol/L (3.5-5.1); Protein, Total 4.3 g/dL (5.8-8.1); Sodium 137 mmol/L (136-145)
[2023-03-31] MEDS ORDERED: Piperacillin/Tazobactam 3.375 GM in Sodium Chloride 0.9% 100 ML IVPB SCH (22:15)
[2023-03-31] MEDS ORDERED: Albumin 25% 25 GM (100 mL) BOT IVPB SCH (22:30)
[2023-03-31] MEDS ORDERED: Vancomycin HCl 750 MG in Sodium Chloride 0.9% 250 ML 250 ML IVPB SCH (22:30)
[2023-03-31] MEDS ORDERED: Midodrine HCl 5 MG TAB PO SCH (22:45)
[2023-03-31] MEDS: Sertraline 25 MG TAB PO SCH (23:39)
[2023-03-31] MEDS: Atorvastatin Calcium 40 MG TAB PO SCH (23:39)
[2023-04-01] MEDS ORDERED: Albumin 25% 25 GM (100 mL) BOT IVPB SCH (01:00)
[2023-04-01] MEDS ORDERED: Bisacodyl 10 MG SUPP PR PRN (01:12)
[2023-04-01] MEDS ORDERED: Bisacodyl 10 MG SUPP PR SCH (02:00)
[2023-04-01] MEDS: Ketorolac Tromethamine 30 MG (1 mL) VIAL IVP PRN ×3 (02:22→17:41)
[2023-04-01] MEDS: Piperacillin/Tazobactam 3.375 GM in Sodium Chloride 0.9% 100 ML IVPB SCH ×3 (03:25→17:49)
[2023-04-01] MEDS ORDERED: Sodium Chloride 0.9% 500 ML IV SCH (04:00)
[2023-04-01] MEDS: Albumin 25% 25 GM (100 mL) BOT IVPB SCH ×2 (05:19→11:45)
[2023-04-01] MEDS: ALPRAZolam 0.25 MG TAB PO PRN ×3 (05:19→21:40)
[2023-04-01 06:21] LABS: #Eosinphils 0.1 thou/uL (0.0-0.7); #Monocytes 0.6 thou/uL (0.11-0.59); #Neutrophils 3.4 thou/uL (1.40-6.50); %Basophils 0.2 % (0.0-1.0); %Eosinophils 2.9 % (0.0-10.0); %Lymphocytes 15.4 % (21.0-51.0); %Monocytes 11.7 % (0.0-10.0); %Neutrophils 68.8 % (42.0-75.0); Hematocrit 29.8 % (36.0-47.0); Hemoglobin 9.6 g/dL (12.0-16.0); Mean Corpuscular HGB CONC 32.2 g/dL (32.0-36.0); Mean Corpuscular Hemoglobin 29.1 pg (27.0-31.0); Mean Corpuscular Volume 90.3 fl (78.0-98.0); Mean Platelet Volume 10.2 fL (7.4-10.4); Platelet Count 183 10x3/uL (130-400); RBC Distribution Width 13.9 % (11.5-14.5); White Blood Cell (WBC) Count 4.9 10x3/uL (4.8-10.8)
[2023-04-01 06:50] LABS: Anion Gap 9 mmol/L (10-20); BUN (Urea Nitrogen) 15 mg/dL (9.8-20.1); Calc. Creatinine Clearance 31 mL/min (70-130); Calcium 8.1 mg/dL (7.8-10.44); Carbon Dioxide 24 mmol/L (23-31); Chloride 110 mmol/L (98-107); Estimated GFR 77; Glucose 88 mg/dL (83-110); Potassium 3.5 mmol/L (3.5-5.1); Sodium 139 mmol/L (136-145)
[2023-04-01] MEDS: Aspirin 81 mg Enteric Coated Tablet PO SCH (08:26)
[2023-04-01] MEDS: Midodrine HCl 5 MG TAB PO SCH ×3 (08:27→21:37)
[2023-04-01] MEDS: Metoprolol Tartrate 25 MG TAB PO SCH ×2 (08:27→21:38)
[2023-04-01] MEDS: Tamsulosin HCl 0.4 MG CAP PO SCH (08:27)
[2023-04-01] MEDS: Multivit, Therapeutic 1 TAB PO SCH (08:27)
[2023-04-01] MEDS: Gabapentin 100 MG CAP PO SCH ×2 (08:27→21:37)
[2023-04-01] MEDS: Senokot S 8.6-50 MG TAB PO SCH (08:27)
[2023-04-01] MEDS ORDERED: Magnevist 469MG/ML 20 ML VIAL ONE (08:58)
[2023-04-01] MEDS ORDERED: Polyethylene Glycol 3350 17 GM Packet PO SCH ×2 (09:00→15:00)
[2023-04-01] MEDS ORDERED: Lactulose 20 GM (30 mL) UDCUP PO SCH (09:45)
[2023-04-01] MEDS: Lidocaine 4% Topical Sol 50 ML BOT TOP SCH ×3 (10:16→21:37)
[2023-04-01] MEDS: Bisacodyl 10 MG SUPP PR SCH ×2 (11:22→18:02)
[2023-04-01] MEDS: traMADol HCl 50 MG TAB PO PRN ×2 (14:56→22:48)
[2023-04-01] MEDS: Polyethylene Glycol 3350 17 GM Packet PO SCH ×2 (15:31→21:35)
[2023-04-01] MEDS ORDERED: Mineral Oil ENEMA PR SCH (15:45)
[2023-04-01] MEDS: Floranex 1 GM Packet PO SCH (21:35)
[2023-04-01] MEDS: Sertraline 25 MG TAB PO SCH (21:37)
[2023-04-01] MEDS: Atorvastatin Calcium 40 MG TAB PO SCH (21:37)
[2023-04-01] MEDS ORDERED: Vancomycin HCl 500 MG in Sodium Chloride 0.9% 100 ML IVPB SCH (23:00)
[2023-04-02] MEDS: Bisacodyl 10 MG SUPP PR SCH ×3 (02:33→16:55)
[2023-04-02] MEDS: Piperacillin/Tazobactam 3.375 GM in Sodium Chloride 0.9% 100 ML IVPB SCH ×3 (02:36→16:55)
[2023-04-02] MEDS: traMADol HCl 50 MG TAB PO PRN ×2 (05:20→18:41)
[2023-04-02 05:28] LABS: #Eosinphils 0.3 thou/uL (0.0-0.7); #Monocytes 0.8 thou/uL (0.11-0.59); #Neutrophils 7.4 thou/uL (1.40-6.50); %Basophils 0.2 % (0.0-1.0); %Eosinophils 3.6 % (0.0-10.0); %Monocytes 8.8 % (0.0-10.0); %Neutrophils 78.8 % (42.0-75.0); Hematocrit 33.7 % (36.0-47.0); Hemoglobin 10.9 g/dL (12.0-16.0); Mean Corpuscular HGB CONC 32.3 g/dL (32.0-36.0); Mean Corpuscular Hemoglobin 29.2 pg (27.0-31.0); Mean Corpuscular Volume 90.3 fl (78.0-98.0); Mean Platelet Volume 10.1 fL (7.4-10.4); Platelet Count 189 10x3/uL (130-400); RBC Distribution Width 14.2 % (11.5-14.5); Red Blood Cell (RBC) Count 3.73 mill/uL (4.20-5.40); White Blood Cell (WBC) Count 9.4 10x3/uL (4.8-10.8)
[2023-04-02] MEDS ORDERED: LevoFLOXacin 750 MG TAB PO SCH (06:00)
[2023-04-02] MEDS: Metoprolol Tartrate 25 MG TAB PO SCH (06:11)
[2023-04-02 06:25] LABS: Anion Gap 12 mmol/L (10-20); BUN (Urea Nitrogen) 13 mg/dL (9.8-20.1); Calc. Creatinine Clearance 32 mL/min (70-130); Calcium 9.1 mg/dL (7.8-10.44); Carbon Dioxide 24 mmol/L (23-31); Chloride 107 mmol/L (98-107); Estimated GFR 79; Glucose 113 mg/dL (83-110); Potassium 3.5 mmol/L (3.5-5.1); Sodium 139 mmol/L (136-145)
[2023-04-02] MEDS: Gabapentin 100 MG CAP PO SCH ×2 (08:20→20:26)
[2023-04-02] MEDS: Senokot S 8.6-50 MG TAB PO SCH (08:20)
[2023-04-02] MEDS: Midodrine HCl 5 MG TAB PO SCH ×3 (08:21→20:27)
[2023-04-02] MEDS: Tamsulosin HCl 0.4 MG CAP PO SCH (08:21)
[2023-04-02] MEDS: Polyethylene Glycol 3350 17 GM Packet PO SCH ×3 (08:21→20:25)
[2023-04-02] MEDS: Aspirin 81 mg Enteric Coated Tablet PO SCH (08:21)
[2023-04-02] MEDS: Lidocaine 4% Topical Sol 50 ML BOT TOP SCH ×3 (08:21→20:26)
[2023-04-02] MEDS: Multivit, Therapeutic 1 TAB PO SCH (08:21)
[2023-04-02] MEDS: Floranex 1 GM Packet PO SCH ×2 (08:21→20:25)
[2023-04-02] MEDS ORDERED: Potassium Chloride 20 MEQ TAB PO SCH (09:45)
[2023-04-02] MEDS ORDERED: Acetaminophen 500 MG TAB PO PRN (11:09)
[2023-04-02] MEDS ORDERED: Lactulose 20 GM (30 mL) UDCUP PO SCH ×2 (11:15→21:00)
[2023-04-02] MEDS ORDERED: Fleet Saline Enema 133 ML BOT PR SCH (11:15)
[2023-04-02] MEDS ORDERED: Hydrocortisone Acetate 25 MG Suppository PR SCH (12:30)
[2023-04-02] MEDS: Atorvastatin Calcium 40 MG TAB PO SCH (20:25)
[2023-04-02] MEDS: Sertraline 25 MG TAB PO SCH (20:27)
[2023-04-02] MEDS: Hydrocortisone Acetate 25 MG Suppository PR SCH (20:44)
[2023-04-03] MEDS: Piperacillin/Tazobactam 3.375 GM in Sodium Chloride 0.9% 100 ML IVPB SCH (04:18)
[2023-04-03] MEDS: Bisacodyl 10 MG SUPP PR SCH ×2 (04:18→10:54)
[2023-04-03] MEDS: traMADol HCl 50 MG TAB PO PRN (04:32)
[2023-04-03 05:14] LABS: #Eosinphils 0.3 thou/uL (0.0-0.7); #Monocytes 0.8 thou/uL (0.11-0.59); #Neutrophils 6.2 thou/uL (1.40-6.50); %Basophils 0.2 % (0.0-1.0); %Eosinophils 3.7 % (0.0-10.0); %Lymphocytes 7.9 % (21.0-51.0); %Monocytes 10.3 % (0.0-10.0); %Neutrophils 77.4 % (42.0-75.0); Hematocrit 34.1 % (36.0-47.0); Hemoglobin 10.8 g/dL (12.0-16.0); Mean Corpuscular HGB CONC 31.7 g/dL (32.0-36.0); Mean Corpuscular Hemoglobin 28.8 pg (27.0-31.0); Mean Corpuscular Volume 90.9 fl (78.0-98.0); Mean Platelet Volume 10.3 fL (7.4-10.4); Platelet Count 209 10x3/uL (130-400); RBC Distribution Width 14.1 % (11.5-14.5); Red Blood Cell (RBC) Count 3.75 mill/uL (4.20-5.40)
[2023-04-03 05:42] LABS: Anion Gap 10 mmol/L (10-20); BUN (Urea Nitrogen) 16 mg/dL (9.8-20.1); Calc. Creatinine Clearance 32 mL/min (70-130); Calcium 9.1 mg/dL (7.8-10.44); Carbon Dioxide 28 mmol/L (23-31); Chloride 107 mmol/L (98-107); Estimated GFR 81; Glucose 103 mg/dL (83-110); Potassium 3.7 mmol/L (3.5-5.1); Sodium 141 mmol/L (136-145)
[2023-04-03] MEDS: ALPRAZolam 0.25 MG TAB PO PRN (05:49)
[2023-04-03 08:32] VITALS: BP 103/65; TEMP 98
[2023-04-03] MEDS ORDERED: Lactulose 20 GM (30 mL) UDCUP PO SCH (09:00)
[2023-04-03] MEDS ORDERED: Enoxaparin 30 MG (0.3 mL) SYRINGE SC SCH (09:00)
[2023-04-03] MEDS: Gabapentin 100 MG CAP PO SCH (09:03)
[2023-04-03] MEDS: Aspirin 81 mg Enteric Coated Tablet PO SCH (09:03)
[2023-04-03] MEDS: Midodrine HCl 5 MG TAB PO SCH (09:03)
[2023-04-03] MEDS: Multivit, Therapeutic 1 TAB PO SCH (09:04)
[2023-04-03] MEDS: Floranex 1 GM Packet PO SCH (09:04)
[2023-04-03] MEDS: Tamsulosin HCl 0.4 MG CAP PO SCH (09:04)
[2023-04-03] MEDS: Senokot S 8.6-50 MG TAB PO SCH (09:04)
[2023-04-03] MEDS: Lidocaine 4% Topical Sol 50 ML BOT TOP SCH (09:05)
[2023-04-03 09:26] LABS: Iron 19 ug/dL (50-170); Iron Binding Capacity, Total 188 mcg/dL (265-497)
[2023-04-03] MEDS: Hydrocortisone Acetate 25 MG Suppository PR SCH (10:53)
[2023-04-03] MEDS ORDERED: Estrogens, Conjugated 30 GM TUBE VAG SCH (21:00)
== END 2023-04-03 12:39 | DRG 871 ==
LOC: ERS 19:54 → T4-B 03-30 02:10 → OBSVTOIN 04-01 14:12
PROVIDERS: ADMIT Hospitalist; ATTEND Family Medicine
PROC: 3E033XZ Introduction of Vasopressor into Peripheral Vein, Percutaneous Approach (ICD-10-PCS; principal; 2023-03-31)
PROC: 30233J1 Transfusion of Nonautologous Serum Albumin into Peripheral Vein, Percutaneous Approach (ICD-10-PCS; 2023-04-01)
PROC: 3E03329 Introduction of Other Anti-infective into Peripheral Vein, Percutaneous Approach (ICD-10-PCS; 2023-04-01)
DX: A41.9 Sepsis, unspecified organism (principal); J69.0 Pneumonitis due to inhalation of food and vomit; I50.22 Chronic systolic (congestive) heart failure; I13.0 Hypertensive heart and chronic kidney disease with heart failure and stage 1 through stage 4 chronic kidney disease, or unspecified chronic kidney disease; I48.0 Paroxysmal atrial fibrillation; K21.9 Gastro-esophageal reflux disease without esophagitis; N18.2 Chronic kidney disease, stage 2 (mild); F32.A Depression, unspecified; R33.9 Retention of urine, unspecified; Z66 Do not resuscitate; F41.9 Anxiety disorder, unspecified; E88.09 Other disorders of plasma-protein metabolism, not elsewhere classified; K59.00 Constipation, unspecified; D64.9 Anemia, unspecified; K59.4 Anal spasm; Z86.73 Personal history of transient ischemic attack (TIA), and cerebral infarction without residual deficits; I25.2 Old myocardial infarction; Z95.5 Presence of coronary angioplasty implant and graft; Z98.890 Other specified postprocedural states; Z90.49 Acquired absence of other specified parts of digestive tract; Z90.710 Acquired absence of both cervix and uterus; Z79.82 Long term (current) use of aspirin; Z79.899 Other long term (current) drug therapy
CPT/HCPCS: 36415; 51702; 70450; 71045; 72146; 72148; 74018; 74177; 74183; 80048; 80053; 81001; 82274; 82550; 82728; 83540; 83550; 83605; 83735; 83880; 84100; 84145; 84484; 85025; 87040; 93005; 93010; 94760; 96374; 96375; 96376; 97139; A9579; G0378; J1885; J2543; J3370; J3490; J7030; J7050; P9047; Q9967

== ENCOUNTER 2023-04-26 05:47 | Inpatient (IN) | payer OTHER ==
[~2023-04-26 05:47] MED LIST changes: +ALPRAZolam 0.25 MG TAB ONE; -Iopamidol 370 76% 100 ML VIAL ONE; -Iopamidol 370 76% 50 ML VIAL FS ONE; +Ondansetron PF 4 MG/2 ML Vial ONE; +Sodium Chloride 0.9% 100 ML ONE; +cefTRIAXone (ROCEPHIN) 1 GM VIAL ONE; +metroNIDAZOLE 500 MG (100 mL) BAG ONE
[2023-04-26] MEDS ORDERED: Azithromycin 500 MG VIAL ONE (05:59)
[2023-04-26] MEDS ORDERED: Lactulose 20 GM (30 mL) UDCUP PO PRN (07:30)
[2023-04-26] MEDS ORDERED: Polyethylene Glycol 3350 17 GM Packet PO PRN (07:57)
[2023-04-26] MEDS ORDERED: Potassium Chloride 20 MEQ TAB ONE (08:07)
[2023-04-26] MEDS ORDERED: Furosemide 20 MG (2 mL) VIAL ONE (08:07)
[2023-04-26] MEDS ORDERED: Famotidine 20 MG TAB PO SCH (09:00)
[2023-04-26] MEDS ORDERED: Non-Formulary Item 1 EACH (Polyethylene Glycol 3350 [Miralax] 119 GM Bottle) PO SCH (09:00)
[2023-04-26] MEDS ORDERED: Polyethylene Glycol 3350 17 GM Packet PO SCH (09:00)
[2023-04-26] MEDS ORDERED: Metoprolol Tartrate 25 MG TAB PO SCH (09:00)
[2023-04-26] MEDS ORDERED: Piperacillin/Tazobactam 4.5 GM in Sodium Chloride 0.9% 100 ML IVPB SCH ×2 (10:00→14:00)
[2023-04-26] MEDS ORDERED: Gabapentin 100 MG CAP ONE (10:03)
[2023-04-26] MEDS ORDERED: Aspirin Chewable 81 MG TAB ONE (10:03)
[2023-04-26] MEDS ORDERED: Sodium Chloride 0.9% 100 ML ONE ×2 (10:03→13:50)
[2023-04-26] MEDS ORDERED: Enoxaparin 40 MG (0.4 mL) SYRINGE ONE (10:03)
[2023-04-26] MEDS ORDERED: Piperacillin/Tazobactam 3.375 GM VIAL ONE ×2 (10:03→13:50)
[2023-04-26 10:15] LABS: Troponin I 0.045 ng/mL (< 0.028)
[2023-04-26] MEDS: Gabapentin 100 MG CAP PO SCH (10:21)
[2023-04-26] MEDS: Aspirin 81 mg Enteric Coated Tablet PO SCH (10:21)
[2023-04-26] MEDS: Piperacillin/Tazobactam 3.375 GM in Sodium Chloride 0.9% 100 ML IVPB SCH ×2 (10:21→13:59)
[2023-04-26] MEDS: Enoxaparin 40 MG (0.4 mL) SYRINGE SC SCH (10:21)
[2023-04-26] MEDS ORDERED: Ondansetron PF 4 MG/2 ML Vial ONE ×2 (10:26→17:33)
[2023-04-26] MEDS: Ondansetron PF 4 MG/2 ML Vial IVP PRN (10:27)
[2023-04-26 13:45] LABS: Legionella Urinary Ag Negative (Negative); Strep pneumo Urine Ag NEGATIVE (NEGATIVE)
[2023-04-26] MEDS: Ipratropium/Albuterol 3 ML NEB NEB PRN (21:28)
[2023-04-26 23:10] VITALS: BMI 22.8
[2023-04-26] MEDS: Atorvastatin Calcium 40 MG TAB PO SCH (23:28)
[2023-04-26] MEDS: Sertraline 25 MG TAB PO SCH (23:29)
[2023-04-26] MEDS: ALPRAZolam 0.25 MG TAB PO PRN (23:30)
[2023-04-27 05:17] LABS: #Neutrophils 14.9 thou/uL (1.40-6.50); %Basophils 0.2 % (0.0-1.0); %Lymphocytes 5.4 % (21.0-51.0); %Monocytes 6.1 % (0.0-10.0); Hematocrit 41.9 % (36.0-47.0); Hemoglobin 12.9 g/dL (12.0-16.0); Mean Corpuscular HGB CONC 30.8 g/dL (32.0-36.0); Mean Corpuscular Volume 91.1 fl (78.0-98.0); Mean Platelet Volume 10.6 fL (7.4-10.4); Platelet Count 229 10x3/uL (130-400); RBC Distribution Width 14.6 % (11.5-14.5)
[2023-04-27] MEDS: Promethazine HCl 12.5 MG in Sodium Chloride 0.9% 50 ML IVPB SCH ×2 (05:51→19:52)
[2023-04-27 05:58] LABS: Anion Gap 16 mmol/L (10-20); BUN (Urea Nitrogen) 18 mg/dL (9.8-20.1); Calc. Creatinine Clearance 42 mL/min (70-130); Carbon Dioxide 28 mmol/L (23-31); Chloride 108 mmol/L (98-107); Estimated GFR 65; Glucose 126 mg/dL (83-110); Potassium 3.3 mmol/L (3.5-5.1); Sodium 149 mmol/L (136-145)
[2023-04-27] MEDS: Enoxaparin 30 MG (0.3 mL) SYRINGE SC SCH (09:34)
[2023-04-27] MEDS: Multivit, Therapeutic 1 TAB PO SCH (09:34)
[2023-04-27] MEDS: Tamsulosin HCl 0.4 MG CAP PO SCH (09:35)
[2023-04-27] MEDS: FLU VACC QS2023(65UP)/MF59C/PF 60 MCG/0.5 ML SYRINGE IM ONE (18:10)
[2023-04-27] MEDS ORDERED: Promethazine HCl 25 MG/ML VIAL IM SCH ×2 (19:00)
[2023-04-28 04:42] LABS: #Monocytes 0.6 thou/uL (0.11-0.59); %Basophils 0.3 % (0.0-1.0); %Eosinophils 0.1 % (0.0-10.0); %Lymphocytes 7.6 % (21.0-51.0); %Monocytes 6.1 % (0.0-10.0); %Neutrophils 85.4 % (42.0-75.0); Hematocrit 41.5 % (36.0-47.0); Hemoglobin 12.6 g/dL (12.0-16.0); Mean Corpuscular HGB CONC 30.4 g/dL (32.0-36.0); Mean Corpuscular Hemoglobin 27.5 pg (27.0-31.0); Mean Corpuscular Volume 90.4 fl (78.0-98.0); Mean Platelet Volume 10.8 fL (7.4-10.4); Platelet Count 221 10x3/uL (130-400); RBC Distribution Width 14.5 % (11.5-14.5); Red Blood Cell (RBC) Count 4.59 mill/uL (4.20-5.40); White Blood Cell (WBC) Count 10.5 10x3/uL (4.8-10.8)
[2023-04-28 05:19] LABS: ALT (SGPT) 12 U/L (8-55); AST (SGOT) 20 U/L (5-34); Albumin 3.6 g/dL (3.4-4.8); Alkaline Phosphatase 105 U/L (40-110); Anion Gap 14 mmol/L (10-20); BUN (Urea Nitrogen) 20 mg/dL (9.8-20.1); Calc. Creatinine Clearance 49 mL/min (70-130); Carbon Dioxide 28 mmol/L (23-31); Chloride 111 mmol/L (98-107); Estimated GFR 79; Globulin 2.6 g/dL (2.4-3.5); Glucose 95 mg/dL (83-110); Potassium 3.1 mmol/L (3.5-5.1); Protein, Total 6.2 g/dL (5.8-8.1); Sodium 150 mmol/L (136-145)
[2023-04-28] MEDS: Guaifenesin DM 100-10/5 ML UDCUP PO PRN (21:47)
[2023-04-29 05:58] LABS: #Monocytes 0.7 thou/uL (0.11-0.59); #Neutrophils 7.9 thou/uL (1.40-6.50); %Basophils 0.3 % (0.0-1.0); %Eosinophils 0.3 % (0.0-10.0); %Lymphocytes 13.2 % (21.0-51.0); %Monocytes 7.2 % (0.0-10.0); %Neutrophils 78.3 % (42.0-75.0); Hematocrit 48.1 % (36.0-47.0); Hemoglobin 14.5 g/dL (12.0-16.0); Mean Corpuscular HGB CONC 30.1 g/dL (32.0-36.0); Mean Corpuscular Hemoglobin 27.6 pg (27.0-31.0); Mean Corpuscular Volume 91.6 fl (78.0-98.0); Mean Platelet Volume 11.1 fL (7.4-10.4); Platelet Count 251 10x3/uL (130-400); RBC Distribution Width 14.3 % (11.5-14.5); Red Blood Cell (RBC) Count 5.25 mill/uL (4.20-5.40); White Blood Cell (WBC) Count 10.1 10x3/uL (4.8-10.8)
[2023-04-29 06:30] LABS: ALT (SGPT) 17 U/L (8-55); AST (SGOT) 29 U/L (5-34); Albumin 3.7 g/dL (3.4-4.8); Alkaline Phosphatase 111 U/L (40-110); Anion Gap 19 mmol/L (10-20); BUN (Urea Nitrogen) 18 mg/dL (9.8-20.1); Bilirubin, Total 0.7 mg/dL (0.2-1.2); Calc. Creatinine Clearance 52 mL/min (70-130); Carbon Dioxide 29 mmol/L (23-31); Chloride 111 mmol/L (98-107); Estimated GFR 85; Glucose 95 mg/dL (83-110); Potassium 3.3 mmol/L (3.5-5.1); Protein, Total 6.7 g/dL (5.8-8.1)
[2023-04-29 06:33] LABS: Sodium 156 mmol/L (136-145)
[2023-04-29] MEDS ORDERED: Dextrose 5% in Water 1,000 ML IV SCH (07:15)
[2023-04-29] MEDS ORDERED: Electrolyte Replacement Protocol 1 EACH FS SCH (07:15)
[2023-04-29] MEDS: Enoxaparin 40 MG (0.4 mL) SYRINGE SC SCH (09:35)
[2023-04-29] MEDS: Potassium Bicarbonate/Cit Ac 20 MEQ TAB PO SCH (09:35)
[2023-04-29] MEDS: Pantoprazole 40 MG GRANULES PACKET PO SCH (09:37)
[2023-04-29] MEDS: Dextrose 5% in Water 1,000 ML IV SCH (10:30)
[2023-04-29] MEDS: Lansoprazole 15 MG/5 ML (BATCHED)UDCUP PER TUBE SCH (12:12)
[2023-04-29] MEDS: Lansoprazole 15 MG/5 ML (BATCHED)UDCUP PO SCH (13:12)
[2023-04-29 17:22] LABS: Anion Gap 11 mmol/L (10-20); BUN (Urea Nitrogen) 18 mg/dL (9.8-20.1); Calc. Creatinine Clearance 50 mL/min (70-130); Calcium 9.1 mg/dL (7.8-10.44); Carbon Dioxide 32 mmol/L (23-31); Chloride 106 mmol/L (98-107); Estimated GFR 84; Glucose 128 mg/dL (83-110); Potassium 3.1 mmol/L (3.5-5.1); Sodium 146 mmol/L (136-145)
[2023-04-29] MEDS: Potassium Chloride 20 MEQ TAB PO SCH (21:06)
[2023-04-30 05:30] LABS: #Eosinphils 0.6 thou/uL (0.0-0.7); #Monocytes 0.6 thou/uL (0.11-0.59); #Neutrophils 4.8 thou/uL (1.40-6.50); %Basophils 0.5 % (0.0-1.0); %Eosinophils 8.2 % (0.0-10.0); %Lymphocytes 17.1 % (21.0-51.0); %Monocytes 8.3 % (0.0-10.0); %Neutrophils 65.5 % (42.0-75.0); Hematocrit 41.6 % (36.0-47.0); Hemoglobin 12.7 g/dL (12.0-16.0); Mean Corpuscular HGB CONC 30.5 g/dL (32.0-36.0); Mean Corpuscular Hemoglobin 27.2 pg (27.0-31.0); Mean Corpuscular Volume 89.1 fl (78.0-98.0); Mean Platelet Volume 10.8 fL (7.4-10.4); Platelet Count 210 10x3/uL (130-400); RBC Distribution Width 14.2 % (11.5-14.5); Red Blood Cell (RBC) Count 4.67 mill/uL (4.20-5.40); White Blood Cell (WBC) Count 7.4 10x3/uL (4.8-10.8)
[2023-04-30 06:13] LABS: Anion Gap 10 mmol/L (10-20); BUN (Urea Nitrogen) 13 mg/dL (9.8-20.1); Calc. Creatinine Clearance 59 mL/min (70-130); Calcium 8.9 mg/dL (7.8-10.44); Carbon Dioxide 30 mmol/L (23-31); Chloride 104 mmol/L (98-107); Estimated GFR 88; Glucose 125 mg/dL (83-110); Potassium 3.4 mmol/L (3.5-5.1); Sodium 141 mmol/L (136-145)
[2023-04-30] MEDS ORDERED: Lansoprazole 15 MG/5 ML (BATCHED)UDCUP PO SCH (09:00)
[2023-04-30 09:27] LABS: Magnesium 1.8 mg/dL (1.6-2.6)
[2023-04-30] MEDS: Potassium Chloride 20 MEQ TAB PO SCH (09:34)
[2023-04-30] MEDS: Pantoprazole 40 MG VIAL IVP SCH (09:35)
[2023-04-30] MEDS: Metoprolol Tartrate 25 MG TAB PO SCH (09:35)
[2023-04-30] MEDS ORDERED: Magnesium 2 GM/50 ML(in water) 1 GM in Premix 1 BAG IVPB SCH (10:00)
[2023-04-30 10:41] LABS: SARS-CoV-2 E Target Negative; SARS-CoV-2 N2 Target Negative; SARS-CoV-2 NAA Rapid Test Not Detected (NotDetected); SARS-CoV-2 RdRP gene Negative
[2023-04-30] MEDS ORDERED: Amiodarone 150 MG in Dextrose 5% in Water 100 ML IVPB SCH (17:00)
[2023-04-30] MEDS ORDERED: Amiodarone 450 MG in Dextrose 5% in Water 250 ML IVPB SCH (17:00)
[2023-04-30] MEDS: Amiodarone 150 MG, Admixture Fee 1 EACH in Dextrose 5% in Water 100 ML IVPB SCH (17:58)
[2023-04-30] MEDS: Amiodarone 450 MG, Admixture Fee 1 EACH in Dextrose 5% in Water 250 ML IVPB SCH (18:22)
[2023-05-01] MEDS: Acetaminophen 325 MG TAB PO PRN (01:37)
[2023-05-01 06:53] LABS: Anion Gap 10 mmol/L (10-20); BUN (Urea Nitrogen) 8 mg/dL (9.8-20.1); Calc. Creatinine Clearance 59 mL/min (70-130); Carbon Dioxide 30 mmol/L (23-31); Cardiac Risk 4.1 (Less than 4.5); Chloride 103 mmol/L (98-107); Cholesterol 107 mg/dl (< 200 Desired); Estimated GFR 88; Glucose 100 mg/dL (83-110); HDL Cholesterol 26 mg/dL (>60 Neg Risk); LDL Cholesterol, Calculated 55 mg/dL; Magnesium 1.8 mg/dL (1.6-2.6); Potassium 3.6 mmol/L (3.5-5.1); Sodium 139 mmol/L (136-145); Triglycerides 131 mg/dL (Less than 150)
[2023-05-01] MEDS: Magnesium 2 GM/50 ML(in water) 2 GM in Premix 1 BAG IVPB SCH (09:12)
[2023-05-01] MEDS: Amiodarone 200 MG TAB PO SCH (22:10)
[2023-05-02 15:36] VITALS: BP 151/57; TEMP 97.8
[2023-05-15] MEDS ORDERED: Amiodarone 200 MG TAB PO SCH (09:00)
[2023-05-29] MEDS ORDERED: Amiodarone 200 MG TAB PO SCH (09:00)
== END 2023-05-02 19:19 | DRG 193 ==
LOC: ERS 05:47 → ERHOLD 06:13 → 2NO 06:22
PROVIDERS: ADMIT Internal Medicine; ATTEND Family Medicine
DX: J18.9 Pneumonia, unspecified organism (principal); I50.43 Acute on chronic combined systolic (congestive) and diastolic (congestive) heart failure; J96.01 Acute respiratory failure with hypoxia; E87.0 Hyperosmolality and hypernatremia; I13.0 Hypertensive heart and chronic kidney disease with heart failure and stage 1 through stage 4 chronic kidney disease, or unspecified chronic kidney disease; I48.20 Chronic atrial fibrillation, unspecified; Z79.82 Long term (current) use of aspirin; Z79.899 Other long term (current) drug therapy; N18.2 Chronic kidney disease, stage 2 (mild); D63.1 Anemia in chronic kidney disease; K21.9 Gastro-esophageal reflux disease without esophagitis; F41.9 Anxiety disorder, unspecified; Z90.49 Acquired absence of other specified parts of digestive tract; Z90.710 Acquired absence of both cervix and uterus; Z90.89 Acquired absence of other organs; K59.09 Other constipation; Z66 Do not resuscitate; E87.6 Hypokalemia; K44.9 Diaphragmatic hernia without obstruction or gangrene; Z87.891 Personal history of nicotine dependence; I35.0 Nonrheumatic aortic (valve) stenosis; I25.10 Atherosclerotic heart disease of native coronary artery without angina pectoris
CPT/HCPCS: 36415; 36416; 71045; 74018; 80048; 80053; 80061; 83735; 84145; 85025; 87081; 87449; 87633; 87899; 93005; 93306; 94640; 96365; 96366; 96367; 96375; C9113; J0282; J0456; J0696; J1650; J1940; J2405; J2543; J2550; J3475; J3490; J7070; J7620; U0002